=== PATIENT | female | born 1945 | race Caucasian/White ===

== ENCOUNTER → 2017-08-31 | Outpatient (CLI) | payer OTHER ==
[~2017-08-31] MED LIST: ALPR.5 PO; ASCO500 PO; Alprazolam0.5 MG PO; BENAML10/5 PO; ENOX100I SQ; ENOX40I SC; ERGO50000; ESOM20; FERR325 PO; Ferrous Sulfat325 MG PO; GABA100 PO; GABA300T24 PO; GLIM2 PO; GLIM4 PO; GLUCOPHAGE; Gas-X125 M1 PO; HCTZ/LOSARTAN; HYDACE5 PO; HYDCHL25 PO; K-Dur20 MEQ; LOVASTATIN; META800 PO; METF500 PO; METO25 PO; METO25ER PO; Norco 10-325 T1 EACH PO; OMEP20ER PO; OMEP40CA12 PO; OXYC10ER PO; OXYC5 PO; Omeprazole20 M1 PO; Percocet 5-3251 EACH PO; SERT100 PO; SERT50 PO; SIMV40 PO; Simvastatin40 MG PO; VALS80 PO; VALSARTAN-HCTZ1 EAC2 PO; Valium5 MG PO; WARF5 PO; ZOLP10 PO; Zofran Odt8 MG SL
[2017-08-31 16:24] LABS: Creatinine, Urine Random 94.5 mg/dL (27.00-270.00); Protein, Urine Random 18.8 mg/dL (0.0-11.9)
== END | disposition home or self-care (01) ==
LOC: OLS 13:03
PROVIDERS: Internal Medicine
DX: N18.9 Chronic kidney disease, unspecified (principal)
CPT/HCPCS: 82570; 84156

== ENCOUNTER 2018-05-10 16:58 | Emergency (ER) | payer OTHER ==
[~2018-05-10] VITALS: Ht 160 cm; Wt 88.5 kg
[2018-05-10 17:37] LABS: BASOPHILS ABSOLUTE AUTO 0.06 K/mm3 (0.00-0.23); BASOPHILS PERCENT AUTO 1 % (0-2); EOSINOPHILS ABSOLUTE AUTO 0.14 K/mm3 (0.00-0.68); EOSINOPHILS PERCENT AUTO 2 % (0-6); Hematocrit 41.6 % (33.0-51.0); Hemoglobin 13.3 g/dL (11.5-16.0); IMMATURE GRAN ABSOLUTE AUTO 0.02 K/mm3 (0.00-0.10); IMMATURE GRAN PERCENT AUTO 0 % (0-1); LYMPHOCYTES ABSOLUTE AUTO 3.17 K/mm3 (0.84-5.20); LYMPHOCYTES PERCENT AUTO 38 % (21-46); MONOCYTES ABSOLUTE AUTO 0.54 K/mm3 (0.16-1.47); MONOCYTES PERCENT AUTO 6 % (4-13); Mean Corpuscular HGB 30.4 pg (26.0-34.0); Mean Corpuscular Volume 95 fL (80-100); Mean Platelet Volume 9.7 fL (9.1-12.4); NEUTROPHILS ABSOLUTE AUTO 4.48 K/mm3 (1.96-9.15); NEUTROPHILS PERCENT AUTO 53 % (41-73); Platelet Count 159 K/mm3 (150-400); RDW Coefficient Variation 12.2 % (11.7-14.2); RDW Standard Deviation 42.8 fL (35.1-46.3); Red Blood Cell Count 4.38 M/mm3 (3.80-5.20); White Blood Cell Count 8.41 K/mm3 (4.00-11.30)
[2018-05-10 17:50] LABS: Bilirubin, Total 0.4 mg/dL (0.1-1.0); Bun/Creatinine Ratio 15.3 (12.0-20.0); Calcium, Blood 8.8 mg/dL (8.5-10.1); Creatinine, Blood 1.18 mg/dL (0.40-1.00); Globulin, Blood 3.9 g/dL (2.2-4.0); Potassium, Blood 4.2 mmol/L (3.5-5.5); Total Protein, Blood 7.9 g/dL (6.4-8.2)
== END 2018-05-10 18:55 | disposition home or self-care (01) ==
LOC: ER 16:58
PROVIDERS: Emergency Medicine
DX: I95.9 Hypotension, unspecified (principal); E11.9 Type 2 diabetes mellitus without complications; Z79.899 Other long term (current) drug therapy; Z86.718 Personal history of other venous thrombosis and embolism
CPT/HCPCS: 80053; 85025; 93005; 93010; 99284-25

== ENCOUNTER 2019-03-11 13:08 | Emergency (ER) | payer OTHER ==
[~2019-03-11] VITALS: Ht 160 cm; Wt 68.0 kg
[2019-03-11 13:46] LABS: BASOPHILS ABSOLUTE AUTO 0.03 K/mm3 (0.00-0.23); BASOPHILS PERCENT AUTO 0 % (0-2); EOSINOPHILS ABSOLUTE AUTO 0.03 K/mm3 (0.00-0.68); EOSINOPHILS PERCENT AUTO 0 % (0-6); Hematocrit 35.8 % (33.0-51.0); Hemoglobin 11.5 g/dL (11.5-16.0); IMMATURE GRAN ABSOLUTE AUTO 0.08 K/mm3 (0.00-0.10); IMMATURE GRAN PERCENT AUTO 1 % (0-1); LYMPHOCYTES ABSOLUTE AUTO 1.05 K/mm3 (0.84-5.20); LYMPHOCYTES PERCENT AUTO 6 % (21-46); MONOCYTES ABSOLUTE AUTO 1.08 K/mm3 (0.16-1.47); MONOCYTES PERCENT AUTO 7 % (4-13); Mean Corpuscular HGB 30.4 pg (26.0-34.0); Mean Corpuscular HGB Conc 32.1 g/dL (31.5-36.5); Mean Corpuscular Volume 95 fL (80-100); Mean Platelet Volume 9.1 fL (9.1-12.4); NEUTROPHILS ABSOLUTE AUTO 14.37 K/mm3 (1.96-9.15); NEUTROPHILS PERCENT AUTO 86 % (41-73); Platelet Count 218 K/mm3 (150-400); RDW Coefficient Variation 12.3 % (11.7-14.2); RDW Standard Deviation 43.5 fL (35.1-46.3); Red Blood Cell Count 3.78 M/mm3 (3.80-5.20); White Blood Cell Count 16.64 K/mm3 (4.00-11.30)
[2019-03-11 14:08] LABS: Alanine Aminotransfer (ALT/SGP 11 U/L (12-78); Albumin, Blood 3.2 g/dL (3.4-5.0); Albumin/Globulin Ratio 0.7 (0.8-1.8); Alk Phos 63 U/L (50-136); Anion Gap 7 mmol/L (6-16); Aspartate Aminotrans (AST/SGOT 8 U/L (12-37); Bilirubin, Total 0.7 mg/dL (0.1-1.0); Blood Urea Nitrogen 19 mg/dL (8-24); Bun/Creatinine Ratio 17.6 (12.0-20.0); CO2, Blood 31 mmol/L (21-32); Calcium, Blood 8.5 mg/dL (8.5-10.1); Chloride, Blood 94 mmol/L (98-108); Creatinine, Blood 1.08 mg/dL (0.40-1.00); Globulin, Blood 4.5 g/dL (2.2-4.0); Glomerular Filtration Rate 53 (60-); Glucose, Blood 137 mg/dL (70-99); Potassium, Blood 3.5 mmol/L (3.5-5.5); Sodium, Blood 132 mmol/L (136-145); Total Protein, Blood 7.7 g/dL (6.4-8.2); Troponin I <0.015 ng/mL (0.000-0.040)
[2019-03-11] MEDS ORDERED: Augmentin 500-1 EACH PO (16:29)
== END 2019-03-11 17:27 | disposition home or self-care (01) ==
LOC: ER 13:08
PROVIDERS: Physician Assistant
DX: J18.9 Pneumonia, unspecified organism (principal); Z79.899 Other long term (current) drug therapy; Z79.891 Long term (current) use of opiate analgesic; E11.9 Type 2 diabetes mellitus without complications; Z87.891 Personal history of nicotine dependence
CPT/HCPCS: 36415; 71046; 80053; 84484; 85025; 93005; 93010; 99285-25; J1885

== ENCOUNTER 2019-03-30 16:05 | Inpatient (IN) | payer OTHER ==
[~2019-03-30] VITALS: Ht 160 cm; Wt 94.0 kg
[~2019-03-30 16:05] MED LIST changes: +Augmentin 500-1 EACH PO
[2019-03-30 16:54] LABS: BASOPHILS ABSOLUTE AUTO 0.04 K/mm3 (0.00-0.23); BASOPHILS PERCENT AUTO 0 % (0-2); EOSINOPHILS ABSOLUTE AUTO 0.08 K/mm3 (0.00-0.68); EOSINOPHILS PERCENT AUTO 1 % (0-6); Hematocrit 34.2 % (33.0-51.0); Hemoglobin 10.9 g/dL (11.5-16.0); IMMATURE GRAN ABSOLUTE AUTO 0.06 K/mm3 (0.00-0.10); IMMATURE GRAN PERCENT AUTO 0 % (0-1); LYMPHOCYTES ABSOLUTE AUTO 1.01 K/mm3 (0.84-5.20); LYMPHOCYTES PERCENT AUTO 6 % (21-46); MONOCYTES ABSOLUTE AUTO 0.89 K/mm3 (0.16-1.47); MONOCYTES PERCENT AUTO 6 % (4-13); Mean Corpuscular HGB 30.2 pg (26.0-34.0); Mean Corpuscular HGB Conc 31.9 g/dL (31.5-36.5); Mean Corpuscular Volume 95 fL (80-100); Mean Platelet Volume 9.2 fL (9.1-12.4); NEUTROPHILS ABSOLUTE AUTO 13.93 K/mm3 (1.96-9.15); NEUTROPHILS PERCENT AUTO 87 % (41-73); Platelet Count 258 K/mm3 (150-400); RDW Coefficient Variation 12.5 % (11.7-14.2); RDW Standard Deviation 43.7 fL (35.1-46.3); Red Blood Cell Count 3.61 M/mm3 (3.80-5.20); White Blood Cell Count 16.01 K/mm3 (4.00-11.30)
[2019-03-30 17:09] LABS: Alanine Aminotransfer (ALT/SGP 13 U/L (12-78); Albumin/Globulin Ratio 0.7 (0.8-1.8); Alk Phos 71 U/L (50-136); Anion Gap 8 mmol/L (6-16); Aspartate Aminotrans (AST/SGOT 18 U/L (12-37); Bilirubin, Total 0.8 mg/dL (0.1-1.0); Blood Urea Nitrogen 10 mg/dL (8-24); Bun/Creatinine Ratio 11.8 (12.0-20.0); CO2, Blood 28 mmol/L (21-32); Calcium, Blood 8.2 mg/dL (8.5-10.1); Chloride, Blood 98 mmol/L (98-108); Creatinine, Blood 0.85 mg/dL (0.40-1.00); Globulin, Blood 4.6 g/dL (2.2-4.0); Glomerular Filtration Rate >60 (60-); Glucose, Blood 87 mg/dL (70-99); Potassium, Blood 3.3 mmol/L (3.5-5.5); Sodium, Blood 134 mmol/L (136-145); Total Protein, Blood 7.6 g/dL (6.4-8.2)
[2019-03-30] MEDS ORDERED: Percocet 5-3251 EACH PO (20:45)
[2019-03-30] MEDS ORDERED: BUPR150ER PO (20:46)
[2019-03-30] MEDS ORDERED: TOCO1000 PO (20:47)
[2019-03-30] MEDS ORDERED: HYDCHL25 PO (20:50)
[2019-03-30] MEDS ORDERED: POTCHL20ER PO (20:51)
[2019-03-30 21:37] LABS: International Normalized Ratio 1.03; Prothrombin Time Results 10.9 Sec (9.7-11.5)
[2019-03-31 01:50] LABS: U Amphetamine Screen Not Detected; U Barbituate Screen Not Detected; U Benzodiazapine Screen Not Detected; U Buprenorphine Screen Not Detected; U Cannabinoids Screen Not Detected; U Cocaine Screen Not Detected; U Methadone Screen Not Detected; U Methamphetamine Screen Not Detected; U Opiates Screen DETECTED; U Oxycodone Screen DETECTED; U Phencyclidine Screen Not Detected; U Propoxyphene Screen Not Detected
[2019-03-31 04:49] LABS: BASOPHILS ABSOLUTE AUTO 0.05 K/mm3 (0.00-0.23); BASOPHILS PERCENT AUTO 0 % (0-2); EOSINOPHILS ABSOLUTE AUTO 0.09 K/mm3 (0.00-0.68); EOSINOPHILS PERCENT AUTO 1 % (0-6); Hematocrit 28.8 % (33.0-51.0); Hemoglobin 9.1 g/dL (11.5-16.0); IMMATURE GRAN ABSOLUTE AUTO 0.07 K/mm3 (0.00-0.10); IMMATURE GRAN PERCENT AUTO 1 % (0-1); LYMPHOCYTES ABSOLUTE AUTO 1.79 K/mm3 (0.84-5.20); LYMPHOCYTES PERCENT AUTO 15 % (21-46); MONOCYTES ABSOLUTE AUTO 0.91 K/mm3 (0.16-1.47); MONOCYTES PERCENT AUTO 8 % (4-13); Mean Corpuscular HGB 29.5 pg (26.0-34.0); Mean Corpuscular HGB Conc 31.6 g/dL (31.5-36.5); Mean Corpuscular Volume 94 fL (80-100); Mean Platelet Volume 8.9 fL (9.1-12.4); NEUTROPHILS ABSOLUTE AUTO 9.17 K/mm3 (1.96-9.15); NEUTROPHILS PERCENT AUTO 76 % (41-73); Platelet Count 132 K/mm3 (150-400); RDW Coefficient Variation 12.6 % (11.7-14.2); RDW Standard Deviation 43.3 fL (35.1-46.3); Red Blood Cell Count 3.08 M/mm3 (3.80-5.20); White Blood Cell Count 12.08 K/mm3 (4.00-11.30)
[2019-03-31 05:10] LABS: Anion Gap 11 mmol/L (6-16); Blood Urea Nitrogen 13 mg/dL (8-24); Bun/Creatinine Ratio 15.5 (12.0-20.0); CO2, Blood 26 mmol/L (21-32); Calcium, Blood 7.3 mg/dL (8.5-10.1); Chloride, Blood 99 mmol/L (98-108); Creatinine, Blood 0.84 mg/dL (0.40-1.00); Glomerular Filtration Rate >60 (60-); Glucose, Blood 72 mg/dL (70-99); Potassium, Blood 2.9 mmol/L (3.5-5.5); Sodium, Blood 136 mmol/L (136-145)
--- NOTE | 2019-03-31 05:50 | NUR ---
SHIFT SUMMARY PT ADMITTED WITH COUGH AND ABSCESS OF LUNG. HAD BEEN DIAGNOSED 3 WEEKS AGO WITH PNEUMONIA AND TREATED WITH ORAL ANTIBIOTICS. PT A&O, CONTINENT OF BOWEL AND BLADDER. URINE SPECIMEN OBTAINED AND SENT TO LAB. PT HAS NON-PRODUCTIVE COUGH AND HAS BEEN COUGHING MUCH OF THE NIGHT WITHOUT RELIEF WITH PRN COUGH MEDICINES. PT ALSO STATES SHE SELF CATHS 2-3 X DAILY. CATH TRAY IN ROOM FOR PT TO SELF CATH WHEN NEEDING TO DUE TO CYSTOCELE. IVF'S INFUSING PER PUMP WITHOUT DIFFICULTY. PT DENIES HAVING ANY PAIN. WILL CONTINUE TO MONITOR.
--- NOTE | 2019-03-31 07:39 | NUR ---
DURING MORNING MED PASS THIS NURSE ENTERED PT ROOM TO FIND HER KNEELING ON HER LEFT KNEE ON THE FLOOR NEXT TO HER BED. PT STATES THAT SHE GOT DIZZY ON HER WAY BACK FROM THE BATHROOM AND LOST HER BALANCE. NO INJURIES OBSERVED. PT DENIES ANY PAIN R/T FALL. PT WAS ASSISTED BACK TO BED X 2 ASSIST. V/S WNL. CHARGE NURSE NOTIFIED. BED ALARM SET AND YELLOW GOWN PLACED AND EDUCATION PROVIDED REGARDING THE USE OF THE CALL LIGHT AND IN THE FUTURE TO CALL FOR HELP BEFORE GOING TO THE TOILET. PT IS RESTING BACK IN BED.
--- NOTE | 2019-03-31 07:46 | NUR ---
DR SOTELO NOTIFIED OF FALL AND NO NEW ORDERS GIVEN OF NOW. NURSING TO CONTINUE TO MONITOR.
--- NOTE | 2019-03-31 17:54 | NUR ---
SHIFT SUMMARY: PT HAS BEEN A/O X4 THIS SHIFT WITH ONGOING C/O CHRONIC PAIN FOR WHICH SHE TAKES SCHEDULED MEDS FOR AND REPORTS THEM BEING EFFECTIVE. NO LATE INJURIES OR PAIN NOTED S/P FALL THIS AM AND PT WAS AGREEABLE TO CALLING FOR HELP BEFORE TRANSFERRING TO BSC. FAMILY HAS BEEN AT BEDSIDE MOST OF THE DAY. DR SOTELO ORDERED A CONSULT THAT WAS CALLED INTO DR LOWERY WHO CAME TO SEE PT THIS AFTERNOON. PERSISTENT COUGH CONTINUES BUT ORDERED COUGH DROPS APPEAR TO BE MILDLY EFFECTIVE. PT IS RESTING IN BED WITH CALL LIGHT IN REACH.
--- NOTE | 2019-04-01 07:31 | NUR ---
Shift summary: Pt has frequent dry cough during the night. No sputum sample was obtained. Pt hard of hearing. IV came out right arm during night. Iv restarted in left arm. Pt recieving antibiotics without problems. Guiaffesson given for cough with some relief. Pt refused in and out cath during the night. Stated she did not need to pee. Pt to radiology for chest xray at 0600- tolerated well.
[2019-04-01 08:39] LABS: BASOPHILS ABSOLUTE AUTO 0.04 K/mm3 (0.00-0.23); BASOPHILS PERCENT AUTO 1 % (0-2); EOSINOPHILS ABSOLUTE AUTO 0.14 K/mm3 (0.00-0.68); EOSINOPHILS PERCENT AUTO 2 % (0-6); Hemoglobin 9.4 g/dL (11.5-16.0); IMMATURE GRAN ABSOLUTE AUTO 0.06 K/mm3 (0.00-0.10); IMMATURE GRAN PERCENT AUTO 1 % (0-1); LYMPHOCYTES ABSOLUTE AUTO 1.06 K/mm3 (0.84-5.20); LYMPHOCYTES PERCENT AUTO 15 % (21-46); MONOCYTES ABSOLUTE AUTO 0.59 K/mm3 (0.16-1.47); MONOCYTES PERCENT AUTO 8 % (4-13); Mean Corpuscular HGB 30.2 pg (26.0-34.0); Mean Corpuscular HGB Conc 31.3 g/dL (31.5-36.5); Mean Platelet Volume 9.2 fL (9.1-12.4); NEUTROPHILS ABSOLUTE AUTO 5.32 K/mm3 (1.96-9.15); NEUTROPHILS PERCENT AUTO 74 % (41-73); Platelet Count 166 K/mm3 (150-400); RDW Coefficient Variation 12.7 % (11.7-14.2); RDW Standard Deviation 45.1 fL (35.1-46.3); Red Blood Cell Count 3.11 M/mm3 (3.80-5.20); White Blood Cell Count 7.21 K/mm3 (4.00-11.30)
[2019-04-01 08:48] LABS: Mean Corpuscular Volume 97 fL (80-100)
[2019-04-01 09:03] LABS: Anion Gap 8 mmol/L (6-16); Blood Urea Nitrogen 10 mg/dL (8-24); Bun/Creatinine Ratio 12.9 (12.0-20.0); CO2, Blood 26 mmol/L (21-32); Calcium, Blood 7.2 mg/dL (8.5-10.1); Chloride, Blood 106 mmol/L (98-108); Creatinine, Blood 0.78 mg/dL (0.40-1.00); Glomerular Filtration Rate >60 (60-); Glucose, Blood 81 mg/dL (70-99); Potassium, Blood 3.1 mmol/L (3.5-5.5); Sodium, Blood 140 mmol/L (136-145)
[2019-04-01 09:10] LABS: Vancomycin, Trough 26.1 ug/mL (5.0-10.0)
[2019-04-01 16:54] LABS: Vancomycin, Random 19.2 ug/mL
--- NOTE | 2019-04-01 17:14 | NUR ---
Pal spiritual Care intial visit: Mrs. Qureshi is primarily irritated at beding hospitalized. she is non-pentecostalism and declined freight weigher visit. Family at bedside appears supportive. I will remain available.
--- NOTE | 2019-04-01 19:48 | NUR ---
SHIFT SUMMARY: NO ACUTE CHANGES TO REPORT THIS SHIFT. PT A&O; IRRITABLE; COOPERATIVE WITH CARE. MEDICATED FOR PAIN & COUGH PER EMAR. TELE IN PLACE; SR @ 78. IV ABX CONTINUING. REPORT GIVEN TO ONCOMING RN.
[2019-04-02 05:50] LABS: Bun/Creatinine Ratio 8.7 (12.0-20.0); Creatinine, Blood 1.03 mg/dL (0.40-1.00); Potassium, Blood 3.5 mmol/L (3.5-5.5)
--- NOTE | 2019-04-02 05:52 | NUR ---
SHIFT SUMMARY PT C/O PAIN AND COUGH. CONSTANT DRY NONPRODUCTIVE COUGH MEDICATED PER EMAR FOR PAIN AND COUGH T/O NIGHT. SELF CATHS X2. SBA Adam WALKER TO BA. BED ALARM IN USE. SHE WAS ABLE TO SLEEP A LITTLE T/O NIGHT UNTIL LAB DRAW CAME IN. CALL LIGHT IN REACH.
--- NOTE | 2019-04-02 16:45 | NUR ---
SHIFT SUMMARY: PT IS A/O X 3-4 WITH MOMENTS OF FORGETFULLNESS AT BASELINE. PT REPORTS CHRONIC PAIN FOR WHICH SCHEDULED PAIN MEDS WERE GIVEN AND EFFECTIVE. PT DID REPORT SOME MILD NAUSEA THIS MORNING AFTER BREAKFAST AND FELT IT WAS FROM HER FOOD AND REQUESTED A SODA TO HELP SETTLE HER STOMACH. FAMILY HAS BEEN IN ROOM MOST OF SHIFT. IV ABO INFUSED VIA PERIPHERAL LINE WITH NO ISSUES OBSERVED. PT IS NOW AMBULTING WITH A FWW AND X 1 ASSIST TO THE TOILET. PT IS ABLE TO MAKE HER NEEDS KNOWN AND USES CALL LIGHT FOR HELP.
--- NOTE | 2019-04-03 06:43 | NUR ---
SHIFT SUMMARY PT IS A 73 Y/O FEMALE, ADMITTED FOR A LUNG ABSCESS. SHE IS A&O X 4, AND A SBA IN THE ROOM. PT WAS MEDICATED ONCE AT BEDTIME FOR GENERAL PAIN, AND WAS MEDICATED X2 FOR HER DRY, CHRONIC COUGH DURING THE NIGHT. VITAL SIGNS WERE STABLE. NO COMPLAINTS OF NAUSEA OR SOB. NO OTHER ACUTE CHANGES IN PT CONDITION NOTED DURING THE NIGHT. WILL CONTINUE TO MONITOR AND TREAT PER EMAR UNTIL HAND OFF TO DAY SHIFT RN.
[2019-04-03 07:18] LABS: Vancomycin, Trough 33.3 ug/mL (5.0-10.0)
[2019-04-03] MEDS ORDERED: Q-Tussin100 MG/5 M PO (15:06)
[2019-04-03] MEDS ORDERED: ACET325 PO (15:14)
[2019-04-03] MEDS ORDERED: CEPACOL SORE T1 EACH MM (15:16)
[2019-04-03] MEDS ORDERED: BENZ100A PO (15:16)
[2019-04-03] MEDS ORDERED: HIGH POTENCY P1 EACH PO (15:18)
[2019-04-03] MEDS ORDERED: Vancocin HCL1000 M1 (15:20)
[2019-04-03] MEDS ORDERED: MAXIPIME2 GM IV (15:21)
--- NOTE | 2019-04-03 15:56 | NUR ---
PT DISCHARGE REPORT CALLED TO RN AT [facility] [place] TO BE TRANSFERED AT 0916
--- NOTE | 2019-04-03 18:19 | NUR ---
PT DISCHARGED PT TRANSFERED TO [facility], THE PT WAS A/OX3, PLEASANT AND COOPERATIVE, THE ESCORT SERVICE WAS LATE PICKING UP THE PT, THE PT WAS BREATHING EASILY ON RA AT THE TIME OF DISCHARGE, DC ORDER PACKET WAS GIVEN TO THE ESCORT REVOLVING FIELD ASSEMBLER, PT WAS TRANSFERED VIA WHEELCHAIR
--- NOTE | 2019-04-04 13:22 | NUR ---
CHANGE TO IV ANTIBIOTIC ORDER: PER DR. DARLING, PT NEEDS TO STOP IV CEFEPIME AND START IV UNASYN 1.5 GM Q6H FOR 17 DAYS. CALLED AND SPOKE WITH OLIVIER ANGEL AT [facility] TO NOTIFY HER OF THESE CHANGES. FAXED ORDERS TO [phone] AT 1320.
== END 2019-04-03 17:36 | DRG 871 ==
LOC: ER 16:05 → MEDS 21:28 → ER 22:40 → MEDS 22:54 → ENPENDDIS 04-03 11:00 → MEDS 04-03 17:36
PROVIDERS: Hospitalist; Internal Medicine; Nurse Practitioner Acute Care; Pharmacist; Physician Assistant; ADMIT Hospitalist
PROC: 02HV33Z Insertion of Infusion Device into Superior Vena Cava, Percutaneous Approach (ICD-10-PCS; principal; 2019-04-03)
PROC: B548ZZA Ultrasonography of Superior Vena Cava, Guidance (ICD-10-PCS; 2019-04-03)
DX: A41.9 Sepsis, unspecified organism (principal); J18.9 Pneumonia, unspecified organism; J85.1 Abscess of lung with pneumonia; I10 Essential (primary) hypertension; E87.6 Hypokalemia; F41.1 Generalized anxiety disorder; K44.9 Diaphragmatic hernia without obstruction or gangrene; K21.9 Gastro-esophageal reflux disease without esophagitis; Z86.718 Personal history of other venous thrombosis and embolism; Z87.891 Personal history of nicotine dependence; Z79.899 Other long term (current) drug therapy
CPT/HCPCS: 36415; 36569; 71046; 71260; 80048; 80053; 80202; 82947; 83036; 83605; 83735; 84145; 84484; 85025; 85610; 87040; 87493; 93005; 93010; 94640; 96365-59; 96375-59; 99285-25; C1751; J1650; J1885; J2543; J3370; J3480; J7030; J7050; Q9967

== ENCOUNTER 2019-04-06 15:41 | Emergency (ER) | payer OTHER ==
[~2019-04-06] VITALS: Ht 160 cm; Wt 93.0 kg
[~2019-04-06 15:41] MED LIST changes: +ACET325 PO; +BENZ100A PO; +BUPR150ER PO; +CEPACOL SORE T1 EACH MM; +HIGH POTENCY P1 EACH PO; +MAXIPIME2 GM IV; +POTCHL20ER PO; +Q-Tussin100 MG/5 M PO; +TOCO1000 PO; +Vancocin HCL1000 M1
[2019-04-06 17:06] LABS: Source, Urine Clean Catch
[2019-04-06 17:09] LABS: Bilirubin, Urine Neg (Neg); Blood, Urine 4+ (Neg); Glucose Qualitative, Urine Neg (Neg); Ketones, Urine 2+ (Neg); Leukocyte Esterase, Urine Neg (Neg); Nitrite, Urine Neg (Neg); Protein, Urine Neg (Neg); Urobilinogen, Urine NORM (Normal)
[2019-04-06 17:42] LABS: Appearance, Urine Clear (Clear); Color, Urine Yellow (P-Yellow)
[2019-04-06 18:01] LABS: Bacteria Rare /hpf; Squamous Epithelial Cells Few /hpf (Few); White Blood Cells, Urine 0-2 /hpf (0-5)
== END 2019-04-06 19:02 | disposition home or self-care (01) ==
LOC: ER 15:41
PROVIDERS: Physician Assistant
DX: K52.1 Toxic gastroenteritis and colitis (principal); T36.8X5A Adverse effect of other systemic antibiotics, initial encounter; Z79.899 Other long term (current) drug therapy; Z79.891 Long term (current) use of opiate analgesic; E11.9 Type 2 diabetes mellitus without complications; Z87.891 Personal history of nicotine dependence
CPT/HCPCS: 81001; 87493; 99283; J2997

== ENCOUNTER 2019-04-11 14:17 | Emergency (ER) | payer OTHER ==
[~2019-04-11] VITALS: Ht 160 cm; Wt 92.5 kg
[2019-04-11] MEDS ORDERED: Vitamin D2000 UNIT PO (15:14)
[2019-04-11] MEDS ORDERED: IRBE150 PO (15:16)
[2019-04-11] MEDS ORDERED: PIOG15 PO (15:18)
[2019-04-11] MEDS ORDERED: META800 PO (15:18)
[2019-04-11 16:06] LABS: Albumin, Blood 2.5 g/dL (3.4-5.0); Albumin/Globulin Ratio 0.6 (0.8-1.8); Bilirubin, Total 0.4 mg/dL (0.1-1.0); Bun/Creatinine Ratio 12.1 (12.0-20.0); Calcium, Blood 8.3 mg/dL (8.5-10.1); Creatinine, Blood 1.4 mg/dL (0.40-1.00); Globulin, Blood 4.5 g/dL (2.2-4.0); Potassium, Blood 3.2 mmol/L (3.5-5.5)
[2019-04-11 16:20] LABS: BASOPHILS ABSOLUTE AUTO 0.09 K/mm3 (0.00-0.23); BASOPHILS PERCENT AUTO 1 % (0-2); EOSINOPHILS ABSOLUTE AUTO 0.25 K/mm3 (0.00-0.68); EOSINOPHILS PERCENT AUTO 2 % (0-6); Hematocrit 32.3 % (33.0-51.0); Hemoglobin 10.3 g/dL (11.5-16.0); IMMATURE GRAN ABSOLUTE AUTO 0.13 K/mm3 (0.00-0.10); IMMATURE GRAN PERCENT AUTO 1 % (0-1); LYMPHOCYTES ABSOLUTE AUTO 1.51 K/mm3 (0.84-5.20); LYMPHOCYTES PERCENT AUTO 10 % (21-46); MONOCYTES ABSOLUTE AUTO 1.09 K/mm3 (0.16-1.47); MONOCYTES PERCENT AUTO 8 % (4-13); Mean Corpuscular HGB 29.2 pg (26.0-34.0); Mean Corpuscular HGB Conc 31.9 g/dL (31.5-36.5); Mean Corpuscular Volume 92 fL (80-100); Mean Platelet Volume 9.8 fL (9.1-12.4); NEUTROPHILS PERCENT AUTO 79 % (41-73); Platelet Count 211 K/mm3 (150-400); RDW Coefficient Variation 14.6 % (11.7-14.2); Red Blood Cell Count 3.53 M/mm3 (3.80-5.20); White Blood Cell Count 14.47 K/mm3 (4.00-11.30)
== END 2019-04-11 17:04 | disposition home or self-care (01) ==
LOC: ER 14:17
PROVIDERS: Emergency Medicine
DX: E87.6 Hypokalemia (principal); F32.9 Major depressive disorder, single episode, unspecified; E11.22 Type 2 diabetes mellitus with diabetic chronic kidney disease; I12.9 Hypertensive chronic kidney disease with stage 1 through stage 4 chronic kidney disease, or unspecified chronic kidney disease; N18.9 Chronic kidney disease, unspecified; Z87.891 Personal history of nicotine dependence; Z79.899 Other long term (current) drug therapy
CPT/HCPCS: 36415; 71046; 80053; 83735; 85025; 93005; 93010; 99284-25; J3480

== ENCOUNTER 2019-04-14 09:47 | Emergency (ER) | payer OTHER ==
[~2019-04-14] VITALS: Ht 160 cm; Wt 90.7 kg
[~2019-04-14 09:47] MED LIST changes: +IRBE150 PO; +PIOG15 PO; +Vitamin D2000 UNIT PO
[2019-04-14 10:50] LABS: Albumin, Blood 2.5 g/dL (3.4-5.0); Albumin/Globulin Ratio 0.6 (0.8-1.8); Bilirubin, Total 0.5 mg/dL (0.1-1.0); Bun/Creatinine Ratio 11.8 (12.0-20.0); Creatinine, Blood 1.36 mg/dL (0.40-1.00); Globulin, Blood 4.2 g/dL (2.2-4.0); Potassium, Blood 3.5 mmol/L (3.5-5.5); Total Protein, Blood 6.7 g/dL (6.4-8.2)
== END 2019-04-14 11:24 | disposition home or self-care (01) ==
LOC: ER 09:47
PROVIDERS: Emergency Medicine
DX: E87.6 Hypokalemia (principal); E11.22 Type 2 diabetes mellitus with diabetic chronic kidney disease; I12.9 Hypertensive chronic kidney disease with stage 1 through stage 4 chronic kidney disease, or unspecified chronic kidney disease; N18.9 Chronic kidney disease, unspecified; F41.1 Generalized anxiety disorder; F32.9 Major depressive disorder, single episode, unspecified; Z86.718 Personal history of other venous thrombosis and embolism; Z87.891 Personal history of nicotine dependence; Z88.8 Allergy status to other drugs, medicaments and biological substances; Z88.5 Allergy status to narcotic agent; Z79.899 Other long term (current) drug therapy; Z79.891 Long term (current) use of opiate analgesic
CPT/HCPCS: 36415; 80053; 99283

== ENCOUNTER 2019-04-20 22:07 | Inpatient (IN) | payer OTHER ==
[~2019-04-20] VITALS: Ht 160 cm; Wt 91.6 kg
[2019-04-20 23:49] LABS: Source, Urine Catheter
[2019-04-20 23:52] LABS: Appearance, Urine Clear (Clear); Bilirubin, Urine Neg (Neg); Blood, Urine 4+ (Neg); Color, Urine Yellow (P-Yellow); Glucose Qualitative, Urine Neg (Neg); Ketones, Urine 1+ (Neg); Leukocyte Esterase, Urine Neg (Neg); Nitrite, Urine Neg (Neg); Protein, Urine 2+ (Neg); Urobilinogen, Urine NORM (Normal)
[2019-04-20 23:55] LABS: BASOPHILS ABSOLUTE AUTO 0.13 K/mm3 (0.00-0.23); BASOPHILS PERCENT AUTO 1 % (0-2); EOSINOPHILS ABSOLUTE AUTO 0.14 K/mm3 (0.00-0.68); EOSINOPHILS PERCENT AUTO 1 % (0-6); Hematocrit 37.2 % (33.0-51.0); Hemoglobin 11.8 g/dL (11.5-16.0); IMMATURE GRAN ABSOLUTE AUTO 0.08 K/mm3 (0.00-0.10); IMMATURE GRAN PERCENT AUTO 1 % (0-1); LYMPHOCYTES ABSOLUTE AUTO 1.03 K/mm3 (0.84-5.20); LYMPHOCYTES PERCENT AUTO 7 % (21-46); MONOCYTES ABSOLUTE AUTO 0.98 K/mm3 (0.16-1.47); MONOCYTES PERCENT AUTO 6 % (4-13); Mean Corpuscular HGB 30.1 pg (26.0-34.0); Mean Corpuscular HGB Conc 31.7 g/dL (31.5-36.5); Mean Corpuscular Volume 95 fL (80-100); Mean Platelet Volume 11.2 fL (9.1-12.4); NEUTROPHILS ABSOLUTE AUTO 13.12 K/mm3 (1.96-9.15); NEUTROPHILS PERCENT AUTO 85 % (41-73); Platelet Count 153 K/mm3 (150-400); RDW Coefficient Variation 15.3 % (11.7-14.2); RDW Standard Deviation 53.2 fL (35.1-46.3); Red Blood Cell Count 3.92 M/mm3 (3.80-5.20); White Blood Cell Count 15.48 K/mm3 (4.00-11.30)
[2019-04-20 23:59] LABS: Amorphous Light (0-Heavy); Bacteria Few /hpf; Red Blood Cells, Urine 0-2 /hpf (0-2); Squamous Epithelial Cells Few /hpf (Few); White Blood Cells, Urine 0-2 /hpf (0-5)
[2019-04-21 00:08] LABS: Albumin, Blood 2.5 g/dL (3.4-5.0); Albumin/Globulin Ratio 0.5 (0.8-1.8); Bilirubin, Total 0.5 mg/dL (0.1-1.0); Bun/Creatinine Ratio 14.5 (12.0-20.0); Creatinine, Blood 2.55 mg/dL (0.40-1.00); Globulin, Blood 4.7 g/dL (2.2-4.0); Magnesium, Blood 2.1 mg/dL (1.6-2.4); Potassium, Blood 3.4 mmol/L (3.5-5.5); Total Protein, Blood 7.2 g/dL (6.4-8.2)
[2019-04-21] MEDS ORDERED: Tessalon Perle100 MG PO (00:38)
[2019-04-21 04:53] LABS: Hematocrit 35.6 % (33.0-51.0); Hemoglobin 11.2 g/dL (11.5-16.0); Mean Corpuscular HGB 29.4 pg (26.0-34.0); Mean Corpuscular HGB Conc 31.5 g/dL (31.5-36.5); Mean Corpuscular Volume 93 fL (80-100); Mean Platelet Volume 10.6 fL (9.1-12.4); Platelet Count 141 K/mm3 (150-400); RDW Coefficient Variation 15.4 % (11.7-14.2); Red Blood Cell Count 3.81 M/mm3 (3.80-5.20); White Blood Cell Count 14.06 K/mm3 (4.00-11.30)
[2019-04-21 05:08] LABS: Albumin, Blood 2.4 g/dL (3.4-5.0); Albumin/Globulin Ratio 0.6 (0.8-1.8); Bilirubin, Total 0.5 mg/dL (0.1-1.0); Bun/Creatinine Ratio 15.2 (12.0-20.0); Calcium, Blood 8.4 mg/dL (8.5-10.1); Creatinine, Blood 2.5 mg/dL (0.40-1.00); Globulin, Blood 4.2 g/dL (2.2-4.0); Potassium, Blood 3.8 mmol/L (3.5-5.5); Total Protein, Blood 6.6 g/dL (6.4-8.2)
--- NOTE | 2019-04-21 06:45 | NUR ---
SHIFT SUMMARY PT ARRIVED TO ROOM APPROX 0330. SAID SHE WAS UNABLE TO VOID AND SHE TRIED AND COULDN'T, BLADDER SCAN SHOWED MORE THAN 1000. DR BROUSSARD ORDERED STRAIGHT CATH THEN BLADDER SCAN 6 HR LATER. STRAIGHT CATH DRAINED OUT 1175. PT PLEASANTLY CONFUSED DIDN'T KNOW YEAR BUT KNEW SHE WAS AT [facility]. SHE FELL ASLEEP AFTER STRAIGHT CATH. BED ALARM IN USE.
[2019-04-21 09:07] LABS: Creatinine, Urine Random 29.1 mg/dL (27.00-270.00)
--- NOTE | 2019-04-21 12:00 | NUR ---
PT. BLADDER SCAN SHOWED PT HAD A VOLUME OF 600 ML OF URINE AND UNABLE TO VOID. CALLED DR. DARLING TO GET ORDERS FOR CATHETER PLACEMENT. URIBE PLACED AND 700 MLOF URINE RELEASED.
[2019-04-21 23:36] LABS: Campylobacter Sp Not Detected (NOT DETECT)
[2019-04-21 23:37] LABS: Adenovirus F 40/41 Not Detected (NOT DETECT); Astrovirus Not Detected (NOT DETECT); Cryptosporidium Not Detected (NOT DETECT); Cyclospora Cayetanensis Not Detected (NOT DETECT); E. Coli O157 Not Detected (NOT DETECT); Entamoeba Histolytica Not Detected (NOT DETECT); Enteroaggregative E. coli-EAEC Not Detected (NOT DETECT); Enteropathogenic E. coli-EPEC Not Detected (NOT DETECT); Enterotoxigenic E. coli-ETEC Not Detected (NOT DETECT); Giardia Lamblia Not Detected (NOT DETECT); Norovirus GI/GII Not Detected (NOT DETECT); Plesiomonas Shigelloides Not Detected (NOT DETECT); Rotavirus A Not Detected (NOT DETECT); Salmonella Sp Not Detected (NOT DETECT); Sapovirus Not Detected (NOT DETECT); Shiga Toxin-prod E. coli-STEC Not Detected (NOT DETECT); Shigella/Enteroin E. coli-EIEC Not Detected (NOT DETECT); Vibrio Cholerae Not Detected (NOT DETECT); Vibrio Sp Not Detected (NOT DETECT); Yersinia Enterocolitica Not Detected (NOT DETECT)
[2019-04-22 08:43] LABS: Bun/Creatinine Ratio 16.8 (12.0-20.0); Calcium, Blood 7.9 mg/dL (8.5-10.1); Creatinine, Blood 2.32 mg/dL (0.40-1.00); Potassium, Blood 3.3 mmol/L (3.5-5.5)
--- NOTE | 2019-04-22 11:01 | NUR ---
PT TO IMAGING FOR MRI.
--- NOTE | 2019-04-22 14:29 | NUR ---
DR DARLING IN ROOM TO DISCUSS MRI AND RENAL U/S WITH FAMILY, DR ACUÑA ALSO CONSULTED FOR F/U FOR PULMONARY ABSCESS AND PNA.
--- NOTE | 2019-04-22 18:10 | NUR ---
SHIFT SUMMARY- PT A/O X2, PERSON AND PLACE. PT DENIES ANY COMPLAINTS T/O THE DAY. PT WITH NOTED GENERALIZED WEAKNESS T/O, PT HAS TREMORS AND DIFFICULTY FOLLOWING DIRECTION. MRI COMPLETED TODAY, MRI NEGATIVE. LS CLEAR/ DIMINISHED IN THE BASES, ON RA. TELE ST AT 101. PT NOTED TO BE HYPERTENSIVE AND TACHY AT 110 THIS EVENING, SCHEDULED EVENING METOPROLOL STARTED EARLY. URIBE FOR RETENTION, PT STRAIGHT CATH'S AT HOME. PT UP TO CHAIR WITH THERAPY WITH 1 ASSIST HOWEVER WHEN GETTING BACK INTO BED PT LEGS GAVE OUT AND NEEDED 4 PEOPLE TO ASSIT INTO BED, PT A LIFT AT THIS TIME. PT HAVING DIFFICULTY FEEDING SELF AND WRITING AT THIS TIME. SWALLOW EVAL COMPLETED TODAY. PT ABLE TO SAY SINGLE WORDS AT A TIME AND IS HAVING DIFFICULTY GETTING ACROSS WHAT SHE IS TRYING TO SAY. DR ACUÑA CONSULTED FOR F/U OF LUNG ABSCESS/ PNA BUT HAS NOT SEEN PT YET. NO OTHER ACUTE CHANGES THIS SHIFT.
--- NOTE | 2019-04-23 04:28 | NUR ---
ASSISTING PRIMARY RN, NAJMA CALLES, WITH PT'S CARE. THIS RN ENTERS CHART TO DO SO.
[2019-04-23 05:13] LABS: Bun/Creatinine Ratio 18.6 (12.0-20.0); Calcium, Blood 8.2 mg/dL (8.5-10.1); Creatinine, Blood 2.31 mg/dL (0.40-1.00); Potassium, Blood 3.4 mmol/L (3.5-5.5)
--- NOTE | 2019-04-23 06:30 | NUR ---
APPROXIMATELY 0245 AM PATIENT WAS HAVING ELEVATED BPS AND CALLED TELE TO CHECK AND SHE WAS ST IN THE 130S FOR APPROX 15 MIN AT THAT TIME. (THE AIDES WERE CHANGING HER LINENS AND TURNING HER BACK AND FORTH IN THE BED AND REPOSITIONING HER DURING THIS TIME FRAME.) BUT PT BACAME SOB, DIAPHORETIC, AIR HUNGRY, HER PRESSURES WERE 180S/100S AND HER SATURATION DROPPED TO THE 70S. STOPPED IVF AND COVERING OLIVIER LIM CALLED PRE K TEACHER HOSPITALIST AND RECEIVED ORDERS FOR LASIX AND TO HOLD IVF. THIS MORNING PATIENT BP IS IMPROVING AND SHE IS EVEN AND UNLABORED IN HER BREATHING. SATURATING AT 96% ON 6l VIA OXIMIZER CANNULA. PASSED REPORT TO JESENIA OLIVIER
--- NOTE | 2019-04-23 18:31 | NUR ---
SHIFT SUMMARY PT WORKED WITH PHSYSICAL AND OCCUPATIONAL THERAPY THIS SHIFT. PT HAD AN INCONTINENT STOOL. NO COMPLAINTS OF PAIN. PT MORE ORIENTED THIS SHIFT PER FAMILY. STILL HAS DIFFICULTY WITH USING RIGHT HAND/ARM. NO DISTRESS THIS SHIFT. DR. PURVIS IN TO SEE PT. LABS ORDERED FOR THE AM. WILL CONTINUE TO MONITOR AND REPORT TO ONCOMING RN.
[2019-04-24 05:07] LABS: Albumin, Blood 2.3 g/dL (3.4-5.0); Albumin/Globulin Ratio 0.6 (0.8-1.8); Bilirubin, Total 0.4 mg/dL (0.1-1.0); Bun/Creatinine Ratio 19.3 (12.0-20.0); Creatinine, Blood 2.28 mg/dL (0.40-1.00); Magnesium, Blood 1.8 mg/dL (1.6-2.4); Phosphorus, Blood 2.6 mg/dL (2.5-4.9); Potassium, Blood 2.6 mmol/L (3.5-5.5); Total Protein, Blood 6.3 g/dL (6.4-8.2)
--- NOTE | 2019-04-24 05:31 | NUR ---
SHIFT SUMMARY PT IS ALERT AND DISORIENTED TO TIME. PT HAD AN UNEVENTFUL NIGHT. NO COMPLAINTS OF DISCOMFORT WERE MADE. PT'S LUNGS WERE CLEAR UPON AUSCULTATION. PT'S POTASSIUM WAS 2.6 THIS MORNING. HOSPITALIST MADE AWARE AND 40MEQ OF POTASSIUM WAS ORDERED. NO SKIN ISSUES DEVELOPED DURING THE SHIFT. VSS. WILL CONTINUE TO MONITOR.
--- NOTE | 2019-04-24 13:55 | NUR ---
Initial Visit: Palliative Care Consult for Readmission. Pt is A&OX3. Pt unable to give appropriate reason for hospital stay. Pt denies pain, anxiety, nausea, and dyspnea at this time. Pt does report experiencing pain in her lower back with exertion such as sitting up or with ambulation. Pt's daughter Sadaf is present during visit. Engaged in therapeutic discussion regarding Advanced Care Planning. Pt currently lives with her and at baseline is independent of her ADLs. Discussed the importance of moth exterminator planning with the future possibility of needing assistance with care. Daughter Sadaf reports that discussions have been made and plan is for Pt and Pt's to sell their house and move in with Sadaf. Sadaf reports she can provide care for Pt and Pt's and higher caregivers if needed. Discussed AD/POLST. Sadaf reports Dr Wells is in the process of helping Pt complete a POLST. Requested Pt to bring in POLST once completed for a copy for medical records. Discussed the importance of having a health care life assurance representative and discussed completing an advanced directive. Pt and daughter are receptive and report they will complete one after discussion with rest of family. Educated on life sustaining measures and each section to complete with V/U made by Sadaf. Pt and Sadaf report no concerns at this time. Palliative Care will remain available.
[2019-04-24 14:44] LABS: Albumin, Blood 2.4 g/dL (3.4-5.0); Anion Gap 11 mmol/L (6-16); Blood Urea Nitrogen 42 mg/dL (8-24); Bun/Creatinine Ratio 19.1 (12.0-20.0); CO2, Blood 18 mmol/L (21-32); Calcium, Blood 7.9 mg/dL (8.5-10.1); Chloride, Blood 111 mmol/L (98-108); Glomerular Filtration Rate 23 (60-); Glucose, Blood 157 mg/dL (70-99); Phosphorus, Blood 2.1 mg/dL (2.5-4.9); Potassium, Blood 3.6 mmol/L (3.5-5.5); Sodium, Blood 140 mmol/L (136-145)
--- NOTE | 2019-04-24 18:40 | NUR ---
SHIFT SUMMARY PT AXO, PLEASANT AND COOPERATIVE WITH CARE. VSS. CHARGE NURSE USED CATHFLO IN PICC LINE PURPLE LINE WOULD NOT FLUSH OR DRAW, UNSUCCESSUFL THOUGH THE RED LINE DOES DRAW AND FLUSH AT THIS TIME NOW. 2 ASSIST TO RECLINER. INCONTINENT OF BOWEL. URIBE PATENT AND DRAINING. BED IN LOW POSITION, CALL LIGHT WITHIN REACH.
--- NOTE | 2019-04-25 04:33 | NUR ---
SHIFT SUMMARY PT ADMITTED FOR ACUTE RENAL FAILURE. FULL CODE. STROKE FINGER FOOD-ADA DIET-NO MIXED CONSISTENCY, ASPIRATION PRECAUTIONS, NO STRAW, THIN SMALL SIPS OF FLUID. UP IN CHAIR FOR MEALS. CATHETER, CATH CARE Q SHIFT AND PRN. BLADDER SCAN Q SHIFT-RESULTS OF 28 MLS. PICC LINE TO TAWNYA, DOES NOT DRAW. CBG AT AND . TELE-NSR AT A RATE OF 86 PER BROMINATION EQUIPMENT OPERATOR. MEDS CRUSHED IN APPLESAUCE. SUCTION SWABS FOR ORAL CARE. LOVENOX FOR DVT PROPHYLAXIS. PT IS A 2 PERSON ASSIST WITH TRANSFERS. EF OF 20-25 PERCENT NOTED ON RECENT ECHO PER REPORT, INDICATING THAT RENAL INJURY LIKELY SECONDARY TO CARDIAC ISSUE. 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 POSSIBLE DISCHARGE HOME WITH [facility] TODAY, WHICH PT REPORTS SHE HAS USED FOR QUITE SOME TIME. THE PT REPORTED THAT SHE TAKES OXYCONTIN FOR PAIN AT HOME AND ASKED THIS NURSE TO ADMINISTER. UPON CHART REVIEW IT DOES NOT APPEAR THAT PT WAS ON ANY PAIN MEDICATIONS SINCE ADMISSION, SO UNCLEAR IF PT HAVING INTERMITTENT CONFUSION/FORGETTFULNESS. WILL BRING UP WITH DAY NURSE TO BRING UP TO MD. PT HAS APPEARED TO SLEEP COMFORTABLY MOST OF THE NIGHT WITH NO APPARENT SIGNS OF ACUTE DISTRESS. FREQUENT VISUAL CHECKS IT IS NOT CLEAR IF PT ALWAYS USES THE CALL LIGHT APPROPRIATELY. BED ALARM FOR SAFETY.
[2019-04-25 06:10] LABS: Bun/Creatinine Ratio 20.7 (12.0-20.0); Creatinine, Blood 2.27 mg/dL (0.40-1.00); Potassium, Blood 3.5 mmol/L (3.5-5.5)
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
--- NOTE | 2019-04-25 10:30 | NUR ---
PAGED DR RODRIGUEZ FOR PT CARDIOLOGY CONSULT AWAITING A RETURN CALL.
--- NOTE | 2019-04-25 15:33 | NUR ---
Spiritual Care inital note" Mrs. Qureshi was sleeping and asked me not to awaken. He appers loving and devoted and denied needs or conerns. They are not pentecostal. Advised barbering instructor services would remain available.
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
--- NOTE | 2019-04-25 19:18 | NUR ---
SHIFT SUMMARY- PT WAS SEEN BY CARDIOLOGY TODAY. PER DR RODRIGUEZ, NO INTERVENTION WILL BE DONE AT THIS TIME, MEDICAL MANAGEMENT WILL BE PERSUED UNTIL PT IS MORE STABLE, MEDICATIONS WERE CHANGED TO IMPROVE CARDIAC FUNCTION AND REDUCE EDEMA AND PT WILL FOLLOW UP OUT PT WITH CARDIOLOGY. PASSED ON IN REPORT TO NIGHT RN. PT GOT UP INTO THE CHAIR TODAY WITH THERAPY, PT STAYED UP UNTIL SHIFT CHANGE AND WAS ASSISTED BY NURSING STAFF BACK TO BED SHE WAS A ONE PERSON ASSIST TO STAND AND STANDBY ASSIST FOR THE TRANSFER WITH VRBAL CUES. PT REQUESTED PAIN MEDICATION ONCE IN BED, PASSED ON TYO NIGHT RN SHE IS AWARE, PT IS AWARE THAT STAFF WILL BE IN TO SEE HER, FAMILY IS AT THE BEDSIDE.
--- NOTE | 2019-04-26 03:30 | NUR ---
SHIFT SUMMARY NO APPARENT ACUTE CHANGES NOTED SO FAR THIS SHIFT. PT COMPLAINT OF PAIN X1 SO FAR THIS SHIFT, MEDICATED PER EMAR. PT ABLE TO TRANSFER WITH ONE ASSIST, APPEARS TO BE GETTING STRONGER. PTS COGNITIVE STATUS APPEARS TO HAVE IMPROVED WELL. PT HAS APPEARED TO SLEEP COMFORTABLY MOST OF THE NIGHT WITH NO APPARENT SIGNS OF ACUTE DISTRESS. ABLE TO MAKE NEEDS KNOWN AND CALL LIGHT IN REACH.
[2019-04-26 04:54] LABS: BASOPHILS ABSOLUTE AUTO 0.05 K/mm3 (0.00-0.23); BASOPHILS PERCENT AUTO 0 % (0-2); EOSINOPHILS ABSOLUTE AUTO 0.33 K/mm3 (0.00-0.68); EOSINOPHILS PERCENT AUTO 3 % (0-6); Hematocrit 35.7 % (33.0-51.0); Hemoglobin 11.1 g/dL (11.5-16.0); IMMATURE GRAN ABSOLUTE AUTO 0.07 K/mm3 (0.00-0.10); IMMATURE GRAN PERCENT AUTO 1 % (0-1); LYMPHOCYTES ABSOLUTE AUTO 1.64 K/mm3 (0.84-5.20); LYMPHOCYTES PERCENT AUTO 14 % (21-46); MONOCYTES ABSOLUTE AUTO 0.93 K/mm3 (0.16-1.47); MONOCYTES PERCENT AUTO 8 % (4-13); Mean Corpuscular HGB 29.6 pg (26.0-34.0); Mean Corpuscular HGB Conc 31.1 g/dL (31.5-36.5); Mean Corpuscular Volume 95 fL (80-100); Mean Platelet Volume 11.5 fL (9.1-12.4); NEUTROPHILS ABSOLUTE AUTO 8.42 K/mm3 (1.96-9.15); NEUTROPHILS PERCENT AUTO 74 % (41-73); Platelet Count 135 K/mm3 (150-400); RDW Coefficient Variation 15.6 % (11.7-14.2); RDW Standard Deviation 53.8 fL (35.1-46.3); Red Blood Cell Count 3.75 M/mm3 (3.80-5.20); White Blood Cell Count 11.44 K/mm3 (4.00-11.30)
[2019-04-26 05:23] LABS: Albumin, Blood 2.3 g/dL (3.4-5.0); Anion Gap 11 mmol/L (6-16); Blood Urea Nitrogen 50 mg/dL (8-24); Bun/Creatinine Ratio 16.6 (12.0-20.0); CO2, Blood 21 mmol/L (21-32); Calcium, Blood 8.1 mg/dL (8.5-10.1); Chloride, Blood 113 mmol/L (98-108); Creatinine, Blood 3.02 mg/dL (0.40-1.00); Glomerular Filtration Rate 16 (60-); Glucose, Blood 155 mg/dL (70-99); Phosphorus, Blood 4.2 mg/dL (2.5-4.9); Potassium, Blood 3.9 mmol/L (3.5-5.5); Sodium, Blood 145 mmol/L (136-145)
--- NOTE | 2019-04-26 07:29 | NUR ---
ASSUMED CARE OF PT- BEDSIDE REPORT COMPLETE, PT HAS HAD NO ACUTE CHANGES T/O THE NIGHT. PAIN MEDICATION WAS AMINISTERED TWICE. RENAL FUNCTION DROPPED ON MORNING LABS. MICHAEL CAME TO SEE THE PT AFTER SHIFT CHANGE, RECOMENDED HOLDING IMDUR WITH MORNING MEDS AND GIVING AFTER REPEAT VITALS AFTER BREAKFAST.
--- NOTE | 2019-04-26 14:47 | NUR ---
met with family to review renal and cardiac function and notes. review of family wishes. they are very stressed about prognosis. suggested she speak with doctor sandra called his office he will call daughter post completed family wants DNR. notified physician radhames completed.
--- NOTE | 2019-04-26 18:43 | NUR ---
SHIFT SUMMARY- PT CODE STATUS WAS CHANGED TO DNR TODAY, PALLIATIVE CARE SPOKE TO THE PT AND FAMILY. FAMILY WAS ASKING IF THEY SHOULD BE THINKING HOSPICE AT THIS TIME, RECOMENDED THAT THEY FOLLOW UP WITH THE PT PCP FOR THAT FINAL DECISION. PT C/O PAIN IN HER FEET JUST PRIOR TO DINNER. MEDICATED WITH TRAMADOL. DR NAVA WOULD LIKE TO TRY THIS IN JOE OF OXY D/T RENAL FUNCTION. PT APPEARS TO BE COMFORTABLE AT THIS TIME. PT IS INCONTINENT OF STOOL AND IS NOT ABLE TO TELL IF SHE HAS GONE IN HER ATTENDS. WILL PASS ON TO THE NEXT SHIFT IN REPORT.
[2019-04-27 05:14] LABS: BASOPHILS ABSOLUTE AUTO 0.08 K/mm3 (0.00-0.23); BASOPHILS PERCENT AUTO 1 % (0-2); EOSINOPHILS ABSOLUTE AUTO 0.35 K/mm3 (0.00-0.68); EOSINOPHILS PERCENT AUTO 3 % (0-6); Hematocrit 34.7 % (33.0-51.0); Hemoglobin 10.9 g/dL (11.5-16.0); IMMATURE GRAN ABSOLUTE AUTO 0.07 K/mm3 (0.00-0.10); IMMATURE GRAN PERCENT AUTO 1 % (0-1); LYMPHOCYTES ABSOLUTE AUTO 2.14 K/mm3 (0.84-5.20); LYMPHOCYTES PERCENT AUTO 18 % (21-46); MONOCYTES ABSOLUTE AUTO 0.97 K/mm3 (0.16-1.47); MONOCYTES PERCENT AUTO 8 % (4-13); Mean Corpuscular HGB 29.2 pg (26.0-34.0); Mean Corpuscular HGB Conc 31.4 g/dL (31.5-36.5); Mean Corpuscular Volume 93 fL (80-100); Mean Platelet Volume 11.1 fL (9.1-12.4); NEUTROPHILS ABSOLUTE AUTO 8.38 K/mm3 (1.96-9.15); NEUTROPHILS PERCENT AUTO 70 % (41-73); Platelet Count 156 K/mm3 (150-400); RDW Coefficient Variation 15.9 % (11.7-14.2); RDW Standard Deviation 53.7 fL (35.1-46.3); Red Blood Cell Count 3.73 M/mm3 (3.80-5.20); White Blood Cell Count 11.99 K/mm3 (4.00-11.30)
[2019-04-27 05:45] LABS: Albumin, Blood 2.5 g/dL (3.4-5.0); Anion Gap 12 mmol/L (6-16); Blood Urea Nitrogen 50 mg/dL (8-24); Bun/Creatinine Ratio 16.2 (12.0-20.0); CO2, Blood 18 mmol/L (21-32); Calcium, Blood 8.1 mg/dL (8.5-10.1); Chloride, Blood 112 mmol/L (98-108); Creatinine, Blood 3.08 mg/dL (0.40-1.00); Glomerular Filtration Rate 16 (60-); Glucose, Blood 120 mg/dL (70-99); Phosphorus, Blood 4.4 mg/dL (2.5-4.9); Potassium, Blood 3.9 mmol/L (3.5-5.5); Sodium, Blood 142 mmol/L (136-145)
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
--- NOTE | 2019-04-27 18:03 | NUR ---
SHIFT SUMMARY: PT IS A/O X 3-4 THIS SHIFT WITH MOMENTS FOR FORGETFULLNESS. SHE HAS NOT HAD MUCH OF AN APPETITE TODAY DESPITE STAFF AND FAMILY OFFERING DIFFERENT OPTIONS. PT DID C/O REYNA THIS MORNING FOR WHICH PRN MEDS WERE EFFECTIVE. URIBE REMAINS INTACT AND PATENT. HAS BEEN AT BEDSIDE SINCE THIS MORNING AND DAUGHTER SINCE THIS AFTERNOON. PT HAS A GOOD SUPPORT SYSTEM. PT IS SITTING UP IN BED EATING DINNER. SHE CALLS FOR HELP WHEN NEEDED.
--- NOTE | 2019-04-28 03:21 | NUR ---
DNR. AOX3. LS ARE SLIGHTLY COARSE, NO C/O SOB. BS PRESENT, PASSING GAS, NO C/O NAUSEA. PAIN RATED 5/10 IN FEET. TRAMADOL GIVEN @ 2100. BG 133 HS SO NO INSULIN GIVEN. NYSTATIN POWDER APPLIED TO ABDOMINAL FOLDS. URIBE DRAINING CLEAR YELLOW. TELE IS RUNNING SR IN THE 90'S. VSS. UNSURE OF DC PLAN AT THIS TIME.
[2019-04-28 09:05] LABS: BASOPHILS ABSOLUTE AUTO 0.08 K/mm3 (0.00-0.23); BASOPHILS PERCENT AUTO 1 % (0-2); EOSINOPHILS ABSOLUTE AUTO 0.34 K/mm3 (0.00-0.68); EOSINOPHILS PERCENT AUTO 3 % (0-6); Hematocrit 34.5 % (33.0-51.0); Hemoglobin 10.7 g/dL (11.5-16.0); IMMATURE GRAN ABSOLUTE AUTO 0.08 K/mm3 (0.00-0.10); IMMATURE GRAN PERCENT AUTO 1 % (0-1); LYMPHOCYTES ABSOLUTE AUTO 1.85 K/mm3 (0.84-5.20); LYMPHOCYTES PERCENT AUTO 17 % (21-46); MONOCYTES ABSOLUTE AUTO 0.92 K/mm3 (0.16-1.47); MONOCYTES PERCENT AUTO 8 % (4-13); Mean Corpuscular HGB 29.8 pg (26.0-34.0); Mean Platelet Volume 10.9 fL (9.1-12.4); NEUTROPHILS ABSOLUTE AUTO 7.93 K/mm3 (1.96-9.15); NEUTROPHILS PERCENT AUTO 71 % (41-73); Platelet Count 168 K/mm3 (150-400); RDW Standard Deviation 56.2 fL (35.1-46.3); Red Blood Cell Count 3.59 M/mm3 (3.80-5.20)
[2019-04-28 09:15] LABS: Albumin, Blood 2.5 g/dL (3.4-5.0); Anion Gap 8 mmol/L (6-16); Blood Urea Nitrogen 45 mg/dL (8-24); Bun/Creatinine Ratio 15.2 (12.0-20.0); CO2, Blood 20 mmol/L (21-32); Calcium, Blood 8.3 mg/dL (8.5-10.1); Chloride, Blood 112 mmol/L (98-108); Creatinine, Blood 2.96 mg/dL (0.40-1.00); Glomerular Filtration Rate 17 (60-); Glucose, Blood 122 mg/dL (70-99); Phosphorus, Blood 4.9 mg/dL (2.5-4.9); Potassium, Blood 5.2 mmol/L (3.5-5.5); Sodium, Blood 140 mmol/L (136-145)
[2019-04-28 10:00] LABS: Mean Corpuscular Volume 96 fL (80-100)
--- NOTE | 2019-04-28 17:25 | NUR ---
SHIFT SUMMARY: PT IS A/O X 3 WITH MILD FORGETFULNESS AT TIMES. PT C/O PAIN AND STATES THAT PAIN MEDS ARE EFFECTIVE WHEN GIVEN. PT CONTINUES TO HAVE A POOR APPETITE. DIFFERENT FOOD OPTIONS CONTINUE TO BE OFFERED. AND DAUGHTER HAVE BEEN AT BEDSIDE MOST OF DAY. NO ACUTE CHANGES OBSERVED THIS SHIFT. PT CALLS FOR HELP WHEN NEEDED.
--- NOTE | 2019-04-29 04:54 | NUR ---
shift summary. Pt medicated x 2 with percocet for feet pain during the night with good relief. Pt otherwise sleeping duringthe shift. Pt on telemetry- SR at 86 per telecommunications repairer. Pt alert, oriented and appropriate. No significant changes during shift.
--- NOTE | 2019-04-29 17:43 | NUR ---
SHIFT SUMMARY PT DID ASK FOR TYLENOL TODAY DUE TO FOOT PAIN. TELEMETRY SHOWS 83 BPM SINUS RHYTHM. PLAN IS FOR DC WITH HOME HEALTH. WE DID GET HER UP INTO THE CHAIR FOR MANY HOURS TODAY. PT IS A&O X4 AND ABLE TO STATE HER NEEDS. NO INSULIN COVERAGE WAS NECESSARY TODAY
--- NOTE | 2019-04-30 05:23 | NUR ---
PT continues with camacho cath, patent and drains clear yellow urine. Tolerating modified diet and activity. Up in chair for meals. PT co neuropathic pain 8/10 bilat feet. Medicated with ultram 50 mg po x 1 with helpful effect and this AM percocet 5/325 mg for foot pain. Hoping to dc home with home health on Dc, Spouse assists with cares.
[2019-04-30 05:49] LABS: Albumin, Blood 2.7 g/dL (3.4-5.0); Anion Gap 7 mmol/L (6-16); Blood Urea Nitrogen 43 mg/dL (8-24); CO2, Blood 22 mmol/L (21-32); Calcium, Blood 8.7 mg/dL (8.5-10.1); Chloride, Blood 108 mmol/L (98-108); Creatinine, Blood 2.87 mg/dL (0.40-1.00); Glomerular Filtration Rate 17 (60-); Glucose, Blood 119 mg/dL (70-99); Phosphorus, Blood 5.6 mg/dL (2.5-4.9); Potassium, Blood 5.1 mmol/L (3.5-5.5); Sodium, Blood 137 mmol/L (136-145)
[2019-04-30] MEDS ORDERED: TRAM50 PO (13:29)
[2019-04-30] MEDS ORDERED: HYDRA25 PO (13:31)
[2019-04-30] MEDS ORDERED: METO25ER PO (13:31)
[2019-04-30] MEDS ORDERED: Isosorbide Mono30 MG PO (13:32)
--- NOTE | 2019-04-30 15:13 | NUR ---
1500 PATIENT DISCHARGE TO HOME WITH . NURSE WENT OVER DISCHARGE PAPERS WITH FAMILY. MEDS SENT TO PHARMACY OF CHOICE. PICC REMOVED BY CHARGE NURSE. CATH REMOVED PRIOR BY DISC RECORDIST DURING SHOWER. PATIENT TO BE TAKEN HOME BY [facility]. BELONGINGS PACKED BY FAMILY.
== END 2019-04-30 15:34 | disposition home health service (06) | DRG 682 ==
LOC: ER 22:07 → MEDS 04-21 02:37 → ENPENDDIS 04-30 10:30 → MEDS 04-30 15:34
PROVIDERS: Emergency Medicine; Family Medicine; Internal Medicine; ADMIT Internal Medicine
DX: N17.9 Acute kidney failure, unspecified (principal); G92 Toxic encephalopathy; I50.41 Acute combined systolic (congestive) and diastolic (congestive) heart failure; K52.1 Toxic gastroenteritis and colitis; E87.2 Acidosis; I13.0 Hypertensive heart and chronic kidney disease with heart failure and stage 1 through stage 4 chronic kidney disease, or unspecified chronic kidney disease; I42.9 Cardiomyopathy, unspecified; R33.8 Other retention of urine; E87.6 Hypokalemia; E78.5 Hyperlipidemia, unspecified; N31.9 Neuromuscular dysfunction of bladder, unspecified; E11.9 Type 2 diabetes mellitus without complications; D69.6 Thrombocytopenia, unspecified; E66.3 Overweight; T36.95XA Adverse effect of unspecified systemic antibiotic, initial encounter; N26.1 Atrophy of kidney (terminal); N18.3 Chronic kidney disease, stage 3 (moderate); Z68.35 Body mass index [BMI] 35.0-35.9, adult; I08.3 Combined rheumatic disorders of mitral, aortic and tricuspid valves
CPT/HCPCS: 0097U; 36415; 51701; 51702; 70450; 70551; 71046; 76770; 80048; 80053; 80069; 81001; 82570; 82947; 83735; 83880; 84100; 84132; 84300; 84443; 85025; 85027; 92507; 92523; 92526; 92610; 93005; 93010; 93306; 96360-59; 96361-59; 97110; 97112; 97116; 97162; 97166; 97530; 97535; 99285-25; J0360; J1650; J1940; J2997; J3480; J7030; J7050; J7120

== ENCOUNTER 2019-12-28 10:23 | Emergency (ER) | payer OTHER ==
[~2019-12-28 10:23] MED LIST changes: +HYDRA25 PO; +Isosorbide Mono30 MG PO; +TRAM50 PO; +Tessalon Perle100 MG PO
== END 2019-12-28 11:44 | disposition home or self-care (01) ==
DX: K64.4 Residual hemorrhoidal skin tags (principal); K59.00 Constipation, unspecified; F41.9 Anxiety disorder, unspecified; F32.9 Major depressive disorder, single episode, unspecified; I10 Essential (primary) hypertension; Z88.8 Allergy status to other drugs, medicaments and biological substances; Z88.5 Allergy status to narcotic agent; Z79.899 Other long term (current) drug therapy; Z87.891 Personal history of nicotine dependence

== ENCOUNTER 2020-07-15 20:49 | Emergency (ER) | payer OTHER ==
[~2020-07-15] VITALS: Ht 160 cm; Wt 90.3 kg
== END 2020-07-15 21:56 | disposition home or self-care (01) ==
LOC: ER 20:49
DX: S93.401A Sprain of unspecified ligament of right ankle, initial encounter (principal); F41.9 Anxiety disorder, unspecified; F32.9 Major depressive disorder, single episode, unspecified; I10 Essential (primary) hypertension; Z79.899 Other long term (current) drug therapy; Z79.84 Long term (current) use of oral hypoglycemic drugs; Z88.8 Allergy status to other drugs, medicaments and biological substances; Z88.5 Allergy status to narcotic agent; Z87.891 Personal history of nicotine dependence; W18.30XA Fall on same level, unspecified, initial encounter
CPT/HCPCS: 29515; 99282-25

== ENCOUNTER → 2020-07-24 | Outpatient (CLI) | payer OTHER ==
[2020-07-24 16:33] LABS: Appearance, Urine Clear (Clear); Bilirubin, Urine Neg (Neg); Blood, Urine Neg (Neg); Color, Urine Yellow (P-Yellow); Glucose Qualitative, Urine Neg (Neg); Ketones, Urine Neg (Neg); Leukocyte Esterase, Urine Neg (Neg); Nitrite, Urine Neg (Neg); Protein, Urine Neg (Neg); Specific Gravity, Urine 1.015 (1.003-1.022); Urobilinogen, Urine NORM (Normal)
== END | disposition home or self-care (01) ==
LOC: LAB 15:08
PROVIDERS: Internal Medicine
DX: N39.0 Urinary tract infection, site not specified (principal)
CPT/HCPCS: 81003

== ENCOUNTER 2022-05-21 23:14 | Inpatient (IN) | payer OTHER ==
[~2022-05-21] VITALS: Ht 162.6 cm; Wt 87.1 kg
[~2022-05-21 23:14] MED LIST changes: -BUPR150ER PO; +BUPROPION XL150 M1 PO; +HYDR10 PO; -HYDRA25 PO; +ISOSORBIDE MONO60 MG PO; -Isosorbide Mono30 MG PO; -Omeprazole20 M1 PO
[2022-05-21 23:49] LABS: BASOPHILS ABSOLUTE AUTO 0.05 K/mm3 (0.00-0.23); BASOPHILS PERCENT AUTO 1 % (0-2); EOSINOPHILS ABSOLUTE AUTO 0.24 K/mm3 (0.00-0.68); EOSINOPHILS PERCENT AUTO 3 % (0-6); Hematocrit 33.8 % (33.0-51.0); Hemoglobin 11.3 g/dL (11.5-16.0); IMMATURE GRAN ABSOLUTE AUTO 0.03 K/mm3 (0.00-0.10); IMMATURE GRAN PERCENT AUTO 0 % (0-1); LYMPHOCYTES ABSOLUTE AUTO 0.95 K/mm3 (0.84-5.20); LYMPHOCYTES PERCENT AUTO 12 % (21-46); MONOCYTES ABSOLUTE AUTO 0.48 K/mm3 (0.16-1.47); MONOCYTES PERCENT AUTO 6 % (4-13); Mean Corpuscular HGB 30.3 pg (26.0-34.0); Mean Corpuscular HGB Conc 33.4 g/dL (31.5-36.5); Mean Corpuscular Volume 91 fL (80-100); Mean Platelet Volume 9.7 fL (9.1-12.4); NEUTROPHILS PERCENT AUTO 77 % (41-73); Platelet Count 130 K/mm3 (150-400); RDW Coefficient Variation 11.9 % (11.7-14.2); RDW Standard Deviation 39.5 fL (35.1-46.3); Red Blood Cell Count 3.73 M/mm3 (3.80-5.20); White Blood Cell Count 7.65 K/mm3 (4.00-11.30)
[2022-05-22 00:03] LABS: Albumin, Blood 3.3 g/dL (3.4-5.0); Albumin/Globulin Ratio 1.1 (0.8-1.8); Bilirubin, Total 0.5 mg/dL (0.1-1.0); Bun/Creatinine Ratio 11.7 (12.0-20.0); Creatinine, Blood 1.62 mg/dL (0.40-1.00); Globulin, Blood 2.9 g/dL (2.2-4.0); Potassium, Blood 3.8 mmol/L (3.5-5.5); Total Protein, Blood 6.2 g/dL (6.4-8.2)
[2022-05-22 00:33] LABS: Source, Urine Straight Cath
[2022-05-22 00:41] LABS: Appearance, Urine Hazy (Clear); Bilirubin, Urine Neg (Neg); Blood, Urine Neg (Neg); Color, Urine Yellow (P-Yellow); Glucose Qualitative, Urine Neg (Neg); Ketones, Urine Neg (Neg); Leukocyte Esterase, Urine 2+ (Neg); Nitrite, Urine Pos (Neg); Protein, Urine Neg (Neg); Specific Gravity, Urine 1.015 (1.003-1.022); Urobilinogen, Urine NORM (Normal)
[2022-05-22 00:49] LABS: Bacteria Many /hpf; Red Blood Cells, Urine Not Seen /hpf (0-2); Squamous Epithelial Cells Rare /hpf (Few)
[2022-05-22] MEDS ORDERED: Percocet 10-321 EACH PO (03:33)
[2022-05-22 05:17] LABS: BASOPHILS ABSOLUTE AUTO 0.05 K/mm3 (0.00-0.23); BASOPHILS PERCENT AUTO 1 % (0-2); EOSINOPHILS ABSOLUTE AUTO 0.24 K/mm3 (0.00-0.68); EOSINOPHILS PERCENT AUTO 4 % (0-6); Hematocrit 33.3 % (33.0-51.0); IMMATURE GRAN ABSOLUTE AUTO 0.03 K/mm3 (0.00-0.10); IMMATURE GRAN PERCENT AUTO 0 % (0-1); LYMPHOCYTES ABSOLUTE AUTO 1.12 K/mm3 (0.84-5.20); LYMPHOCYTES PERCENT AUTO 16 % (21-46); MONOCYTES PERCENT AUTO 6 % (4-13); Mean Corpuscular HGB 30.2 pg (26.0-34.0); Mean Corpuscular Volume 92 fL (80-100); Mean Platelet Volume 9.6 fL (9.1-12.4); NEUTROPHILS ABSOLUTE AUTO 5.11 K/mm3 (1.96-9.15); NEUTROPHILS PERCENT AUTO 74 % (41-73); Platelet Count 126 K/mm3 (150-400); RDW Coefficient Variation 11.9 % (11.7-14.2); Red Blood Cell Count 3.64 M/mm3 (3.80-5.20); White Blood Cell Count 6.95 K/mm3 (4.00-11.30)
[2022-05-22 05:35] LABS: Albumin, Blood 3.1 g/dL (3.4-5.0); Albumin/Globulin Ratio 1.1 (0.8-1.8); Bilirubin, Total 0.6 mg/dL (0.1-1.0); Bun/Creatinine Ratio 11.4 (12.0-20.0); Calcium, Blood 8.6 mg/dL (8.5-10.1); Creatinine, Blood 1.49 mg/dL (0.40-1.00); Globulin, Blood 2.7 g/dL (2.2-4.0); Magnesium, Blood 1.6 mg/dL (1.6-2.4); Potassium, Blood 3.6 mmol/L (3.5-5.5); Total Protein, Blood 5.8 g/dL (6.4-8.2)
--- NOTE | 2022-05-22 06:29 | NUR ---
PT ARRIVED FROM ED WITH SOME CONFUSION. AFTER GRANDDAUGHTER AND LEFT PT BECAME MORE CONFUSED. WAS HAVING VISUAL HALLUCINATIONS. BELIEVED THAT HER DOG HAD BEEN IN THE ROOM. PT WAS ALSO BECOMING VERY PARANOID, TELLING THIS RN THAT SHE COULD NOT BELIEVE ME AND THAT SHE THOUGHT I WAS GOING TO "DO SOMETHING BAD TO HER". ATTEMPTED TO CALL WITH NO ANSWER. GRAND SURESH WATTS CALLED. PT REQUESTING TO GO HOME. REFUSED TO BE STRAIGHT CATH'D. ALLOWED PT TO ATTEMPT TO STRAIGHT CATH HERSELF BUT PT WAS TOO CONFUSED. ATTEMPTING TO PUT DRAWSTRING OF PANTS INTO THE END OF THE CATHETER. GRAND SURESH WATTS CAME IN AND IS AT BEDSIDE CURRENTLY ATTEMPTING TO REORIENT THE PATIENT. PT DID GET UP TO THE BSC AND HAD A EXTRA LARGE BOWEL MOVEMENT AND VOIDED 100 MLS.
[2022-05-22 07:15] LABS: Source, Urine Foley catheter
[2022-05-22 07:23] LABS: Bilirubin, Urine Neg (Neg); Blood, Urine 1+ (Neg); Glucose Qualitative, Urine Neg (Neg); Ketones, Urine Neg (Neg); Leukocyte Esterase, Urine 1+ (Neg); Nitrite, Urine Neg (Neg); Protein, Urine Neg (Neg); Urobilinogen, Urine NORM (Normal)
[2022-05-22 07:38] LABS: Appearance, Urine Clear (Clear); Color, Urine Pale Yellow (P-Yellow)
[2022-05-22 07:41] LABS: Bacteria Many /hpf; Red Blood Cells, Urine 0-2 /hpf (0-2); Squamous Epithelial Cells Rare /hpf (Few)
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
[2022-05-22 09:25] LABS: Thyroid Stimulating Hormone 1.02 uIU/mL (0.360-4.800)
--- NOTE | 2022-05-22 18:10 | NUR ---
SUMMARY- PT ALERT TO SELF AND FAMILY AND THAT SHE IS IN THE HOSPITAL. PT IS FORGETFUL AND MILDLY DELUSIONAL. HAVING VISUAL HALLUCINATIONS ALL DAY. ANIMALS CRAWLING OUT OF THE CEILING. A MIDGIT IN HER ROOM SHE WAS TALKING TO. PT ARGUING WITH FAMILY T/O THE DAY THAT SHE SHOULD BE ABLE TO GO HOME. FAMILY SUPPORTIVE AND IN ROOM ALL DAY. TOLERATED LUNCH AND DINNER. TAKING IN FLUIDS. URIBE PATENT- PT NORMALLY SELF CATHS AT HOME. RED UNDER PANUS AND YEAST APEARING WILL REPORT TO NOC RN. PT UP IN THE CHAIR FOR DINNER. FAMILY HOME FOR THE NIGHT, NEEDS TO REST AND TAKE CARE OF THE DOGS. PHONE #S ON THE BOARD.
[2022-05-22] MEDS ORDERED: VALSARTAN40 MG PO (21:27)
[2022-05-22] MEDS ORDERED: ATOR20 PO (21:28)
[2022-05-22] MEDS ORDERED: CYMBALTA30 M1 PO (21:33)
[2022-05-22] MEDS ORDERED: AMIT25 PO (21:34)
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
[2022-05-23 09:04] LABS: BASOPHILS ABSOLUTE AUTO 0.03 K/mm3 (0.00-0.23); BASOPHILS PERCENT AUTO 1 % (0-2); EOSINOPHILS ABSOLUTE AUTO 0.11 K/mm3 (0.00-0.68); EOSINOPHILS PERCENT AUTO 2 % (0-6); Hematocrit 30.8 % (33.0-51.0); Hemoglobin 10.4 g/dL (11.5-16.0); IMMATURE GRAN ABSOLUTE AUTO 0.04 K/mm3 (0.00-0.10); IMMATURE GRAN PERCENT AUTO 1 % (0-1); LYMPHOCYTES ABSOLUTE AUTO 0.98 K/mm3 (0.84-5.20); LYMPHOCYTES PERCENT AUTO 17 % (21-46); MONOCYTES ABSOLUTE AUTO 0.37 K/mm3 (0.16-1.47); MONOCYTES PERCENT AUTO 7 % (4-13); Mean Corpuscular HGB 30.1 pg (26.0-34.0); Mean Corpuscular HGB Conc 33.8 g/dL (31.5-36.5); Mean Corpuscular Volume 89 fL (80-100); Mean Platelet Volume 9.9 fL (9.1-12.4); NEUTROPHILS ABSOLUTE AUTO 4.14 K/mm3 (1.96-9.15); NEUTROPHILS PERCENT AUTO 73 % (41-73); Platelet Count 114 K/mm3 (150-400); RDW Coefficient Variation 11.9 % (11.7-14.2); Red Blood Cell Count 3.46 M/mm3 (3.80-5.20); White Blood Cell Count 5.67 K/mm3 (4.00-11.30)
[2022-05-23 09:17] LABS: Albumin/Globulin Ratio 1.1 (0.8-1.8); Bun/Creatinine Ratio 7.5 (12.0-20.0); Calcium, Blood 8.3 mg/dL (8.5-10.1); Creatinine, Blood 1.33 mg/dL (0.40-1.00); Globulin, Blood 2.7 g/dL (2.2-4.0); Potassium, Blood 3.3 mmol/L (3.5-5.5); Total Protein, Blood 5.7 g/dL (6.4-8.2)
--- NOTE | 2022-05-23 17:54 | NUR ---
SHIFT SUMMARY PATIENT DENIES PAIN, NAUSEA, AND SHORTNESS OF BREATH. PATIENT A&O X2 THIS MORNING, HALLUCINATING CATS AND A SMALL GIRL IN ROOM. PATIENT ATTEMTPED TO BE REORIENTED, PATIENT WOULD JUST LAUGH. PATIENT TOOK MEDICATIONS FOR THIS RN, LET LAB DRAW, AND LET THIS RN PLACE A NEW IV. PATIENT GOT MORE CONFUSED THE DAY WENT ON. PATIENT CONSTANTLY PULLING AT URIBE, IV, CLOTHES. PATIENT PLACED HEARING AIDE INSIDE HER VAGINA. WHEN ASKED WHY, SHE STATED "THEY TOLD ME TOO". NOTIFIED, NEW ORDERS FOR IM HALDOL. MEDICATION GIVEN. PATIENT CONTINUES TO BE CONFUSED, HALLUCINATING. PATIENT ATTMEPING TO GET OUT OF BED AND LEAVE MULTIPLE TIMES, LOOKING FOR . PATIENT IN ROOM WITH HER, SHE DID NOT RECOGNIZE HIM. BEHAVIORS PERSISTED EVEN 2HRS AFTER MEDICATION ADMINISTERED. THIS RN WENT TO CHECK ON PATIENT, FOUND PATIENT HAD PULLED CATHETER MORE, AND ATTEMPTED TO EAT POWDER SITTING ON SIDE TABLE, TABLE MOVED AWAY FROM PATIENT. NOTIFIED, NEW ORDERS FOR BILATERAL SOFT WRIST RESTRAINTS. PATIENT FAMILY UPDATED. AND DAUGHTER VISITED TODAY. PATIENT HAS POOR PO INTAKE. PATIENT CONTINUES TO HALLUCINATE PEOPLE AND ANIMALS IN ROOM. PATIENT IS MOSLTY PLEASANT WITH STAFF. NOTIFIED.
--- NOTE | 2022-05-24 03:49 | NUR ---
NIGHTSHIFT SUMMARY Patient alert/oriented to self, restless in bed. Start of shift patient pulling on soft wrist restraints, yelling out, asking staff to give her a knife so she could cut off straps. Patient pulled soft restraints off, and pulled out IV, patient got OOB and walked to hallway. Staff redirected patient back to her room, she allowed nurse to place new IV in left/hand. Applied vest, soft wrist restraints. Patient slept for about an hour, than awake. Patient sitting up in bed, slapping hands against the bed. PRN Xanax given, PRN not effective. Patient declined to take meds at HS. ABX IV infused. Vitals stable. Bed alarm activated & audible. Will continue to monitor.
[2022-05-24 05:42] LABS: Hematocrit 34.5 % (33.0-51.0); Hemoglobin 11.4 g/dL (11.5-16.0)
[2022-05-24 06:07] LABS: Albumin, Blood 3.2 g/dL (3.4-5.0); Bilirubin, Total 0.9 mg/dL (0.1-1.0); Bun/Creatinine Ratio 8.1 (12.0-20.0); Calcium, Blood 8.7 mg/dL (8.5-10.1); Creatinine, Blood 1.36 mg/dL (0.40-1.00); Globulin, Blood 3.1 g/dL (2.2-4.0); Potassium, Blood 3.3 mmol/L (3.5-5.5); Total Protein, Blood 6.3 g/dL (6.4-8.2)
--- NOTE | 2022-05-24 10:30 | NUR ---
GAVE UPDATE TO DAUGHTER VIA PHONE.
[2022-05-24] MEDS ORDERED: TRADJENTA5 MG PO (14:13)
--- NOTE | 2022-05-24 16:58 | NUR ---
SHIFT SUMMARY- VSS. CONFUSED. SOME MOMENTS OF HALLUCINATIONS, CATS/ DIFFERENT NURSES IN ROOM. PT REQUESTS "KNIFE NEEDED TO CUT HER SELF LOSE AND GET OUT OF HERE" PT IS UNCLEAR THAT SHE IS IN THE HOSPITAL AT TIMES. PT BECOMING PARANOID AFTERNOON PROGRESSES. PT APPETITE OK, NEEDS FLIGHT OPERATIONS SPECIALIST FEEDINGS. PT AMBULATED TO AND FROM SHOWER 2 ASSIST. REPLACED TEGADERM IV WRAP, IT WAS LOOSE. PT SLEPT A FEW HOURS OF SHIFT. PT WILTH CALL LIGHT IN REACH, BED ALARM ON, AND SIDE RAILS UP FOR SAFETY. SPOKE WITH DAUGHTER 2 TIMES VIA TELEPHONE TO GIVE UP DATE OF CARE.
--- NOTE | 2022-05-25 04:45 | NUR ---
SHIFT SUMMARY 76 YR F ADMITTED ON 05/21/22 FOR AMS/UTI. FULL CODE. PT WAS TAKEN OUT OF WRIST RESTRAINTS AND TICO VEST AT APPROX 0115 TODAY. SHE CALLED OUT TO THIS NURSE FOR HELP AND WAS VERY TEARFUL AND SINCERE IN HER PLIGHT TO HAVE RESTRAINTS REMOVED. SHE WAS LUCID AND DID NOT APPEAR TO BE CONFUSED. THIS NURSE SPENT AT LEAST 30 MINUTES TALKING TO PT AND CAME TO THE CONCLUSION THAT SHE IS NO LONGER A DANGER TO HERSELF FAR PULLING ON LINES AND TRYING TO GET OUT OF BED W/O ASSISTANCE. ONCE RESTRAINTS WERE REMOVED, PT SLEPT COMFORTABLY FOR SEVERAL HOURS. SHE ALSO STATED THAT SHE IS EBARASSED BY HER PRIOR BEHAVIOR AND HAS NO IDEA WHAT CAME OVER HER. THIS NURSE EXPLAINED TO HER WHAT CAN HAPPEN WITH A BAD UTI AND THAT IT WAS NOT HER FAULT AND SHE HAD NO CONTROL OVER IT.
[2022-05-25 05:27] LABS: Calcium, Blood 8.1 mg/dL (8.5-10.1); Creatinine, Blood 1.45 mg/dL (0.40-1.00); Potassium, Blood 3.6 mmol/L (3.5-5.5)
[2022-05-25] MEDS ORDERED: CIPR500 PO (17:20)
[2022-05-25] MEDS ORDERED: VISBIOME 112.51 EACH PO (17:21)
--- NOTE | 2022-05-25 17:54 | NUR ---
SHIFT SUMMARY- VSS. PT A&O X2. LESS CONFUSED. APPETITE OK. IV INFLITERATED, OK'D NO IV AND PO MEDS FOR TONIGHT. FAMILY CONCERNED ABOUT DISCHARGE TONIGHT. DISCUSSED WITH . WILL CONTINUE TO MONITOR, SIDE RAILS UP, CALL LIGHT IN REACH.
--- NOTE | 2022-05-26 04:32 | NUR ---
SHIFT SUMMARY 76 YR F ADMITTED ON 05/21/22 FOR AMS/UTI. FULL CODE. NO ACUTE CHANGES THIS SHIFT. PT IS A&O X 4 AND EXHIBITS NO CONFUSION. SHE IS VERY PLEASANT AND STATES THAT SHE IS STILL EMBARASSED BY HER PREVIOUS BEHAVIOR WHEN SHE WAS CONFUSED. SHE STATES IT IS COMPLETELY DIFFERENT THAN HER BASELINE. SHE STATES SHE FEELS SO MUCH BETTER AND IS HOPING TO GO HOME TOMORROW. LEFT HAND IS STILL SWOLLEN AND HER WEDDING RING IS VERY TIGHT ON HER FINGER. SHE HAD HER ARM ICED AND ELEVATED THIS SHIFT AND THAT SEEMED TO OFFER SOME RELIEF.
--- NOTE | 2022-05-26 11:57 | NUR ---
PATIENT DISCHARGED TO HOME WITH FAMILY ASSIST. OUT TO LOBBY VIA PATIENTS OWN WHEEL CHAIR. DAUGHTER AND SPOUSE VERBALIZED DC INSTRUCTIONS ALONG WITH PATIENT. DAUGHTER WILL CALL WHEN HOME TO MAKE APPOINTMENT FOR PATIENT TO BE SEEN WITHIN ONE OR TWO WEEKS BY PCP.
== END 2022-05-26 11:00 | disposition home health service (06) | DRG 689 ==
LOC: ER 23:14 → MEDS 23:15 → ENPENDDIS 05-25 17:49 → MEDS 05-26 11:00
PROVIDERS: Family Medicine; Family Medicine Adult Medicine; Internal Medicine; Student in an Organized Health Care Education/Training Program; ADMIT Internal Medicine
DX: N39.0 Urinary tract infection, site not specified (principal); G92.8 Other toxic encephalopathy; N17.9 Acute kidney failure, unspecified; G89.29 Other chronic pain; E11.22 Type 2 diabetes mellitus with diabetic chronic kidney disease; R44.1 Visual hallucinations; E87.6 Hypokalemia; M79.642 Pain in left hand; N18.30 Chronic kidney disease, stage 3 unspecified; I12.9 Hypertensive chronic kidney disease with stage 1 through stage 4 chronic kidney disease, or unspecified chronic kidney disease; B96.20 Unspecified Escherichia coli [E. coli] as the cause of diseases classified elsewhere; E11.42 Type 2 diabetes mellitus with diabetic polyneuropathy; F41.8 Other specified anxiety disorders; B96.89 Other specified bacterial agents as the cause of diseases classified elsewhere; E86.0 Dehydration; W19.XXXA Unspecified fall, initial encounter; Z88.8 Allergy status to other drugs, medicaments and biological substances; Z88.5 Allergy status to narcotic agent; Z79.899 Other long term (current) drug therapy; Z79.891 Long term (current) use of opiate analgesic; Z86.718 Personal history of other venous thrombosis and embolism; Z87.01 Personal history of pneumonia (recurrent); Z87.09 Personal history of other diseases of the respiratory system; Z98.890 Other specified postprocedural states; Z87.820 Personal history of traumatic brain injury; Z98.49 Cataract extraction status, unspecified eye; Z90.721 Acquired absence of ovaries, unilateral
CPT/HCPCS: 36415; 51701; 70450; 73120; 80048; 80053; 81001; 82140; 82607; 82746; 82947; 83735; 84443; 85014; 85018; 85025; 87077; 87086; 87186; 93005; 93010; 97110; 97162; 97166; 97530; 97535; 99285-25; A9270; J0744; J1630; J1644; J7030

== ENCOUNTER → 2022-06-18 | Outpatient (CLI) | payer OTHER ==
[~2022-06-18] MED LIST changes: +AMIT25 PO; +ATOR20 PO; +CIPR500 PO; +CYMBALTA30 M1 PO; +Percocet 10-321 EACH PO; +TRADJENTA5 MG PO; +VALSARTAN40 MG PO; +VISBIOME 112.51 EACH PO
[2022-06-18 16:26] LABS: BASOPHILS ABSOLUTE AUTO 0.05 K/mm3 (0.00-0.23); BASOPHILS PERCENT AUTO 1 % (0-2); EOSINOPHILS PERCENT AUTO 3 % (0-6); Hemoglobin 12.5 g/dL (11.5-16.0); IMMATURE GRAN ABSOLUTE AUTO 0.02 K/mm3 (0.00-0.10); IMMATURE GRAN PERCENT AUTO 0 % (0-1); LYMPHOCYTES ABSOLUTE AUTO 1.66 K/mm3 (0.84-5.20); LYMPHOCYTES PERCENT AUTO 26 % (21-46); MONOCYTES ABSOLUTE AUTO 0.29 K/mm3 (0.16-1.47); MONOCYTES PERCENT AUTO 5 % (4-13); Mean Corpuscular HGB Conc 32.9 g/dL (31.5-36.5); Mean Corpuscular Volume 91 fL (80-100); Mean Platelet Volume 10.1 fL (9.1-12.4); NEUTROPHILS ABSOLUTE AUTO 4.07 K/mm3 (1.96-9.15); NEUTROPHILS PERCENT AUTO 65 % (41-73); Platelet Count 146 K/mm3 (150-400); RDW Coefficient Variation 12.5 % (11.7-14.2); RDW Standard Deviation 41.6 fL (35.1-46.3); Red Blood Cell Count 4.16 M/mm3 (3.80-5.20); White Blood Cell Count 6.29 K/mm3 (4.00-11.30)
[2022-06-18 16:49] LABS: Magnesium, Blood 1.5 mg/dL (1.6-2.4)
[2022-06-18 16:53] LABS: Thyroid Stimulating Hormone 2.67 uIU/mL (0.360-4.800)
[2022-06-18 16:54] LABS: Albumin, Blood 3.4 g/dL (3.4-5.0); Albumin/Globulin Ratio 1.1 (0.8-1.8); Bilirubin, Total 0.4 mg/dL (0.1-1.0); Bun/Creatinine Ratio 10.4 (12.0-20.0); Calcium, Blood 8.6 mg/dL (8.5-10.1); Creatinine, Blood 1.34 mg/dL (0.40-1.00); Globulin, Blood 3.1 g/dL (2.2-4.0); Potassium, Blood 4.3 mmol/L (3.5-5.5); Total Protein, Blood 6.5 g/dL (6.4-8.2)
== END | disposition home or self-care (01) ==
LOC: LAB 15:35 → LAB SHORT 15:35
PROVIDERS: Nurse Practitioner Family
DX: R41.0 Disorientation, unspecified (principal)
CPT/HCPCS: 80053; 83735; 84443; 85025

== ENCOUNTER 2023-02-24 18:26 | Emergency (ER) | payer OTHER ==
[~2023-02-24] VITALS: Ht 162.6 cm; Wt 85.7 kg
[2023-02-24 19:11] LABS: BASOPHILS ABSOLUTE AUTO 0.04 K/mm3 (0.00-0.23); BASOPHILS PERCENT AUTO 0 % (0-2); EOSINOPHILS ABSOLUTE AUTO 0.15 K/mm3 (0.00-0.68); EOSINOPHILS PERCENT AUTO 2 % (0-6); Hematocrit 37.3 % (33.0-51.0); Hemoglobin 12.3 g/dL (11.5-16.0); IMMATURE GRAN ABSOLUTE AUTO 0.03 K/mm3 (0.00-0.10); IMMATURE GRAN PERCENT AUTO 0 % (0-1); LYMPHOCYTES ABSOLUTE AUTO 1.79 K/mm3 (0.84-5.20); LYMPHOCYTES PERCENT AUTO 20 % (21-46); MONOCYTES ABSOLUTE AUTO 0.51 K/mm3 (0.16-1.47); MONOCYTES PERCENT AUTO 6 % (4-13); Mean Corpuscular HGB 30.1 pg (26.0-34.0); Mean Corpuscular Volume 91 fL (80-100); Mean Platelet Volume 9.3 fL (9.1-12.4); NEUTROPHILS ABSOLUTE AUTO 6.65 K/mm3 (1.96-9.15); NEUTROPHILS PERCENT AUTO 73 % (41-73); Platelet Count 141 K/mm3 (150-400); RDW Coefficient Variation 12.1 % (11.7-14.2); RDW Standard Deviation 40.3 fL (35.1-46.3); Red Blood Cell Count 4.08 M/mm3 (3.80-5.20); White Blood Cell Count 9.17 K/mm3 (4.00-11.30)
[2023-02-24 19:30] LABS: Albumin, Blood 3.7 g/dL (3.4-5.0); Albumin/Globulin Ratio 1.1 (0.8-1.8); Bilirubin, Total 0.5 mg/dL (0.1-1.0); Bun/Creatinine Ratio 15.2 (12.0-20.0); Calcium, Blood 9.4 mg/dL (8.5-10.1); Creatinine, Blood 1.45 mg/dL (0.40-1.00); Globulin, Blood 3.5 g/dL (2.2-4.0); Potassium, Blood 4.2 mmol/L (3.5-5.5); Total Protein, Blood 7.2 g/dL (6.4-8.2)
[2023-02-24 20:13] LABS: Appearance, Urine Clear (Clear); Bilirubin, Urine Neg (Neg); Blood, Urine Neg (Neg); Color, Urine Yellow (P-Yellow); Glucose Qualitative, Urine Neg (Neg); Ketones, Urine Neg (Neg); Leukocyte Esterase, Urine 1+ (Neg); Nitrite, Urine Neg (Neg); Protein, Urine Neg (Neg); Specific Gravity, Urine 1.015 (1.003-1.022); Urobilinogen, Urine NORM (Normal)
[2023-02-24 20:36] LABS: Bacteria Mod /hpf; Red Blood Cells, Urine Not Seen /hpf (0-2); Squamous Epithelial Cells Few /hpf (Few); White Blood Cells, Urine 0-2 /hpf (0-5)
[2023-02-24] MEDS ORDERED: CEPH500 PO (20:54)
[2023-02-24 21:30] VITALS: BP 129/76
== END 2023-02-24 21:38 | disposition home or self-care (01) ==
LOC: ER 18:26
PROVIDERS: Emergency Medicine
DX: N39.0 Urinary tract infection, site not specified (principal); Z87.891 Personal history of nicotine dependence; Z79.899 Other long term (current) drug therapy; Z88.5 Allergy status to narcotic agent; Z88.8 Allergy status to other drugs, medicaments and biological substances
CPT/HCPCS: 51701; 80053; 81001; 85025; 87086; 96365-59; 99283-25; J0696

== ENCOUNTER 2023-02-25 18:21 | Inpatient (IN) | payer OTHER ==
[~2023-02-25] VITALS: Ht 160 cm; Wt 89.1 kg
[~2023-02-25 18:21] MED LIST changes: +CEPH500 PO
[2023-02-25 19:10] LABS: BASOPHILS ABSOLUTE AUTO 0.05 K/mm3 (0.00-0.23); BASOPHILS PERCENT AUTO 1 % (0-2); EOSINOPHILS ABSOLUTE AUTO 0.19 K/mm3 (0.00-0.68); EOSINOPHILS PERCENT AUTO 2 % (0-6); Hematocrit 34.1 % (33.0-51.0); Hemoglobin 11.1 g/dL (11.5-16.0); IMMATURE GRAN ABSOLUTE AUTO 0.07 K/mm3 (0.00-0.10); IMMATURE GRAN PERCENT AUTO 1 % (0-1); LYMPHOCYTES PERCENT AUTO 22 % (21-46); MONOCYTES ABSOLUTE AUTO 0.52 K/mm3 (0.16-1.47); MONOCYTES PERCENT AUTO 6 % (4-13); Mean Corpuscular HGB Conc 32.6 g/dL (31.5-36.5); Mean Corpuscular Volume 92 fL (80-100); Mean Platelet Volume 9.4 fL (9.1-12.4); NEUTROPHILS ABSOLUTE AUTO 5.97 K/mm3 (1.96-9.15); NEUTROPHILS PERCENT AUTO 69 % (41-73); Platelet Count 140 K/mm3 (150-400); RDW Coefficient Variation 12.1 % (11.7-14.2); RDW Standard Deviation 41.1 fL (35.1-46.3)
[2023-02-25 19:24] LABS: Albumin, Blood 3.4 g/dL (3.4-5.0); Albumin/Globulin Ratio 1.1 (0.8-1.8); Bilirubin, Total 0.3 mg/dL (0.1-1.0); Bun/Creatinine Ratio 12.8 (12.0-20.0); Creatinine, Blood 1.48 mg/dL (0.40-1.00); Globulin, Blood 3.1 g/dL (2.2-4.0); Potassium, Blood 4.5 mmol/L (3.5-5.5); Total Protein, Blood 6.5 g/dL (6.4-8.2)
[2023-02-25 21:43] LABS: Source, Urine Foley catheter
[2023-02-25 21:47] LABS: Bilirubin, Urine Neg (Neg); Blood, Urine 3+ (Neg); Glucose Qualitative, Urine Neg (Neg); Ketones, Urine Neg (Neg); Leukocyte Esterase, Urine 1+ (Neg); Nitrite, Urine Neg (Neg); Protein, Urine Neg (Neg); Urobilinogen, Urine NORM (Normal)
[2023-02-25 21:53] LABS: Appearance, Urine Clear (Clear); Color, Urine Yellow (P-Yellow)
[2023-02-25 21:54] LABS: Bacteria Rare /hpf; Squamous Epithelial Cells Few /hpf (Few); White Blood Cells, Urine 0-2 /hpf (0-5)
[2023-02-25 22:16] VITALS: BP 140/93
[2023-02-26] VITALS (17 sets, daily range): BP systolic 103–147; BP diastolic 57–104
[2023-02-26 03:57] LABS: BASOPHILS ABSOLUTE AUTO 0.03 K/mm3 (0.00-0.23); BASOPHILS PERCENT AUTO 0 % (0-2); EOSINOPHILS ABSOLUTE AUTO 0.05 K/mm3 (0.00-0.68); EOSINOPHILS PERCENT AUTO 1 % (0-6); Hematocrit 31.9 % (33.0-51.0); Hemoglobin 10.5 g/dL (11.5-16.0); IMMATURE GRAN ABSOLUTE AUTO 0.07 K/mm3 (0.00-0.10); IMMATURE GRAN PERCENT AUTO 1 % (0-1); LYMPHOCYTES ABSOLUTE AUTO 1.07 K/mm3 (0.84-5.20); LYMPHOCYTES PERCENT AUTO 11 % (21-46); MONOCYTES PERCENT AUTO 6 % (4-13); Mean Corpuscular HGB Conc 32.9 g/dL (31.5-36.5); Mean Corpuscular Volume 91 fL (80-100); Mean Platelet Volume 9.1 fL (9.1-12.4); NEUTROPHILS ABSOLUTE AUTO 7.82 K/mm3 (1.96-9.15); NEUTROPHILS PERCENT AUTO 81 % (41-73); Platelet Count 116 K/mm3 (150-400); RDW Coefficient Variation 12.1 % (11.7-14.2); RDW Standard Deviation 40.1 fL (35.1-46.3); White Blood Cell Count 9.64 K/mm3 (4.00-11.30)
[2023-02-26 04:34] LABS: Albumin, Blood 3.4 g/dL (3.4-5.0); Albumin/Globulin Ratio 1.2 (0.8-1.8); Bilirubin, Total 0.3 mg/dL (0.1-1.0); Bun/Creatinine Ratio 13.9 (12.0-20.0); Creatinine, Blood 1.44 mg/dL (0.40-1.00); Globulin, Blood 2.8 g/dL (2.2-4.0); Magnesium, Blood 1.5 mg/dL (1.6-2.4); Potassium, Blood 4.6 mmol/L (3.5-5.5); Total Protein, Blood 6.2 g/dL (6.4-8.2)
--- NOTE | 2023-02-26 05:20 | NUR ---
SHIFT SUMMARY ADMITTED LAST NIGHT FOR R HIP FX. HAS BEEN NPO FOR PLANNED SURGERY TODAY. AOX3-MILDLY FORGETFUL & FORGETS WHERE SHE IS AT TIMES. HX DEMENTIA. DOES HAVE TANGETABLE NONSENSICAL RESPONSES TO SOME QUESTIONS. REPORTS 8-10/10 PAIN IN R HIP c MIN MOVEMENT, MEDICATED 2x c 25MCG IV FENT & PT ABLE TO REST FOR A FEW HOURS. URIBE CATH PLACED IN ER SINCE PT NORMALLY SELF CATHS. CALL LIGHT & BED ALARM IN PLACE.
--- NOTE | 2023-02-26 14:09 | NUR ---
ARRIVAL FROM PACU PT ARRIVED FROM PACU AT 1400. PT PLEASANT AND AWAKE, DENIES PAIN. FULL SENSATION TO FEET, WIGGLES TOES ON COMMAND. TWO PRESSURE DRESSINGS CDI TO R HIP. BED ALARM ON PT PLACED ON 3L NASAL CANULA SATS 94%. PT TOLERATING WATER WELL AT THIS TIME. NO NAUSEA
[2023-02-27 01:28] VITALS: BP 128/77
[2023-02-27 05:22] VITALS: BP 119/75
[2023-02-27 05:30] LABS: BASOPHILS ABSOLUTE AUTO 0.02 K/mm3 (0.00-0.23); BASOPHILS PERCENT AUTO 0 % (0-2); EOSINOPHILS ABSOLUTE AUTO 0.01 K/mm3 (0.00-0.68); EOSINOPHILS PERCENT AUTO 0 % (0-6); Hematocrit 27.2 % (33.0-51.0); Hemoglobin 9.1 g/dL (11.5-16.0); IMMATURE GRAN ABSOLUTE AUTO 0.08 K/mm3 (0.00-0.10); IMMATURE GRAN PERCENT AUTO 1 % (0-1); LYMPHOCYTES ABSOLUTE AUTO 1.04 K/mm3 (0.84-5.20); LYMPHOCYTES PERCENT AUTO 9 % (21-46); MONOCYTES ABSOLUTE AUTO 0.78 K/mm3 (0.16-1.47); MONOCYTES PERCENT AUTO 7 % (4-13); Mean Corpuscular HGB 30.7 pg (26.0-34.0); Mean Corpuscular HGB Conc 33.5 g/dL (31.5-36.5); Mean Corpuscular Volume 92 fL (80-100); Mean Platelet Volume 10.3 fL (9.1-12.4); NEUTROPHILS ABSOLUTE AUTO 9.68 K/mm3 (1.96-9.15); NEUTROPHILS PERCENT AUTO 83 % (41-73); Platelet Count 117 K/mm3 (150-400); RDW Coefficient Variation 12.1 % (11.7-14.2); RDW Standard Deviation 40.8 fL (35.1-46.3); Red Blood Cell Count 2.96 M/mm3 (3.80-5.20); White Blood Cell Count 11.61 K/mm3 (4.00-11.30)
[2023-02-27 05:56] LABS: Bun/Creatinine Ratio 15.2 (12.0-20.0); Calcium, Blood 8.4 mg/dL (8.5-10.1); Creatinine, Blood 1.25 mg/dL (0.40-1.00); Magnesium, Blood 2.1 mg/dL (1.6-2.4); Potassium, Blood 4.9 mmol/L (3.5-5.5)
--- NOTE | 2023-02-27 07:35 | NUR ---
SHIFT SUMMARY AOX2-FORGETFUL PLACE, SITUATION @TIMES. VSS. DENIES N/V OR DYSPNEA. REPORTED PAIN IN R HIP, MEDICATED 1x c 25MCG FENTANYL & 1X c 5MG OXYCODONE, PT RESTED WELL T/O NIGHT. POD 1- R HIP PINNING. STRONG PULSE, CAP REFIL <3 SEC, ABLE TO WIGGLE TOES, PRESSURE DRESSING IN PLACE TO R HIP C/D/I. URIBE PATENT & DRAINED 1050 ML LIGHT YELLOW URINE OUT THIS SHIFT. CALL LIGHT & BED ALARM IN PLACE.
[2023-02-27 07:36] VITALS: BP 128/70
[2023-02-27 15:24] VITALS: BP 95/55
--- NOTE | 2023-02-27 18:28 | NUR ---
SHIFT SUMMARY PT A&OX2/CONFUSED, REPOSITIONED WITH ASSIST, NOT OOB TODAY, PAIN MANAGED, REJI PO - LOW INTAKE, URIBE PATENT & DRAINING YELLOW URINE/STAT LOCK ON/OFF FLOOR, IVF @ 80 MLS/HR. POD1 R HIP NAILING, AQUACEL CDI, TTWB. FIRE PREVENTION EDU, IGNITION ASSESSMENT. WILL REPORT TO ONCOMING MINE AGUAYO.
[2023-02-27 19:16] VITALS: BP 114/55
[2023-02-28 04:07] VITALS: BP 145/88
[2023-02-28 07:02] VITALS: BP 106/62
--- NOTE | 2023-02-28 07:26 | NUR ---
SUMMARY PT WITH NO ACUTE CHANGES TONIGHT. NO RISK OF IGNITION /FIRE HAZARD IDENTIFIED.
[2023-02-28 08:49] LABS: BASOPHILS ABSOLUTE AUTO 0.03 K/mm3 (0.00-0.23); BASOPHILS PERCENT AUTO 0 % (0-2); EOSINOPHILS ABSOLUTE AUTO 0.17 K/mm3 (0.00-0.68); EOSINOPHILS PERCENT AUTO 2 % (0-6); Hematocrit 24.4 % (33.0-51.0); Hemoglobin 7.9 g/dL (11.5-16.0); IMMATURE GRAN ABSOLUTE AUTO 0.07 K/mm3 (0.00-0.10); IMMATURE GRAN PERCENT AUTO 1 % (0-1); LYMPHOCYTES ABSOLUTE AUTO 1.42 K/mm3 (0.84-5.20); LYMPHOCYTES PERCENT AUTO 17 % (21-46); MONOCYTES ABSOLUTE AUTO 0.53 K/mm3 (0.16-1.47); MONOCYTES PERCENT AUTO 6 % (4-13); Mean Corpuscular HGB 30.2 pg (26.0-34.0); Mean Corpuscular HGB Conc 32.4 g/dL (31.5-36.5); Mean Corpuscular Volume 93 fL (80-100); Mean Platelet Volume 9.7 fL (9.1-12.4); NEUTROPHILS ABSOLUTE AUTO 6.36 K/mm3 (1.96-9.15); NEUTROPHILS PERCENT AUTO 74 % (41-73); Platelet Count 115 K/mm3 (150-400); RDW Coefficient Variation 12.2 % (11.7-14.2); RDW Standard Deviation 41.4 fL (35.1-46.3); Red Blood Cell Count 2.62 M/mm3 (3.80-5.20); White Blood Cell Count 8.58 K/mm3 (4.00-11.30)
[2023-02-28 09:19] LABS: Bun/Creatinine Ratio 14.9 (12.0-20.0); Calcium, Blood 8.4 mg/dL (8.5-10.1); Creatinine, Blood 1.14 mg/dL (0.40-1.00); Potassium, Blood 4.4 mmol/L (3.5-5.5)
--- NOTE | 2023-02-28 09:30 | NUR ---
PT AND ROOM ASSESSED FOR IGNITION SOURCES, NO FINDINGS.
--- NOTE | 2023-02-28 09:50 | NUR ---
DR. CHUNG NOTIFIED OF DECREASING H&H, LOW NORMAL BP AND ELEVATED HR. PER DR. CHUNG, HYDRALAZINE WAS HELD, METOPROLOL GIVEN AND ASA HELD. WILL CONTINUE TO MONITOR AND PLAN FOR REPEAT H&H THIS AFTERNOON.
[2023-02-28 10:01] VITALS: BP 136/73
[2023-02-28 15:22] LABS: Hematocrit 24.5 % (33.0-51.0); Hemoglobin 7.8 g/dL (11.5-16.0)
[2023-02-28 15:54] VITALS: BP 135/68
--- NOTE | 2023-02-28 17:35 | NUR ---
SHIFT SUMMARY PT IS POD#3 FROM R HIP NAILING. PAIN MANAGED WITH TYLENOL AND OXYCODONE. PT HAS DECLINED ASSISTANCE REPOSITIONING T/O THE DAY. THIS EVENING SHE WAS REPOSITIONED WELL AND SKIN IS IN GOOD CONDITION, SHE WAS ALSO PROVIDED WITH A BED BATH AND PERFORMED HER OWN ORAL CARE. FAMILY HAS BEEN AT THE BEDSIDE FOR SUPPORT, SHE RESPONDS WELL TO FAMILY. H&H LOW, DR. CHUNG AWARE, PLAN TO CONTINUE WITH XARELTO AT THIS TIME PER DR. CHUNG. VSS. PT HAS NOT REQUIRED COVERAGE FOR BLOOD GLUCOSE LEVELS. SHE CONTINUES TO HAVE A DECREASED APPETITE AND TELLS STAFF THAT NOTHING SOUNDS GOOD. WILL MONITOR UNTIL REPORT TO NOC RN.
[2023-02-28 19:15] VITALS: BP 120/90
[2023-03-01 04:18] VITALS: BP 131/76
--- NOTE | 2023-03-01 04:29 | NUR ---
SHIFT SUMMARY NO ACUTE CHANGES THIS SHIFT. PT RESTED WELL. ALERT AND ORIENTED TO SELF AND FOLLOWING DIRECTIONS. COOPERATIVE AND PLEASANT. DENIES PAIN. R HIP DRESSING REMAINS CDI. ICE IN PLACE FOR COMFORT. URIBE INTACT AND DRAINING TO GRAVITY. BED ALARM IN PLACE. NO IGNITION SOURCES IDENTIFIED. CALL LIGHT WITHIN REACH.
[2023-03-01 05:27] LABS: BASOPHILS ABSOLUTE AUTO 0.03 K/mm3 (0.00-0.23); BASOPHILS PERCENT AUTO 0 % (0-2); EOSINOPHILS PERCENT AUTO 3 % (0-6); Hematocrit 22.3 % (33.0-51.0); Hemoglobin 7.1 g/dL (11.5-16.0); IMMATURE GRAN ABSOLUTE AUTO 0.06 K/mm3 (0.00-0.10); IMMATURE GRAN PERCENT AUTO 1 % (0-1); LYMPHOCYTES ABSOLUTE AUTO 1.28 K/mm3 (0.84-5.20); LYMPHOCYTES PERCENT AUTO 16 % (21-46); MONOCYTES ABSOLUTE AUTO 0.52 K/mm3 (0.16-1.47); MONOCYTES PERCENT AUTO 7 % (4-13); Mean Corpuscular HGB 29.8 pg (26.0-34.0); Mean Corpuscular HGB Conc 31.8 g/dL (31.5-36.5); Mean Corpuscular Volume 94 fL (80-100); Mean Platelet Volume 9.7 fL (9.1-12.4); NEUTROPHILS ABSOLUTE AUTO 5.82 K/mm3 (1.96-9.15); NEUTROPHILS PERCENT AUTO 74 % (41-73); Platelet Count 125 K/mm3 (150-400); RDW Coefficient Variation 12.1 % (11.7-14.2); RDW Standard Deviation 41.5 fL (35.1-46.3); Red Blood Cell Count 2.38 M/mm3 (3.80-5.20); White Blood Cell Count 7.91 K/mm3 (4.00-11.30)
[2023-03-01 06:10] LABS: Bun/Creatinine Ratio 13.8 (12.0-20.0); Calcium, Blood 8.2 mg/dL (8.5-10.1); Creatinine, Blood 1.09 mg/dL (0.40-1.00); Potassium, Blood 4.4 mmol/L (3.5-5.5)
[2023-03-01 07:26] VITALS: BP 121/74
[2023-03-01 13:58] LABS: Hematocrit 23.7 % (33.0-51.0); Hemoglobin 7.7 g/dL (11.5-16.0)
[2023-03-01 14:01] VITALS: BP 130/80
--- NOTE | 2023-03-01 17:25 | NUR ---
SUMMARY: POD3 R HIP NAILING. NO ACUTE CHANGE TODAY. VSS, A/O-FORGETFUL, EASILY REORIENTED. SURGICAL SITE WNL, CDI. PT DID NOT AGREE TO WORK WITH OT OR PT BUT THIS RN AND CHAITANYA WEBBER HELPED HER OUT OF BED TO COMMODE X2. PT DID WELL WITH 2 ASSIST AND FWW, DID NEED REMINDED AND EDUCATED ON TTWB. PT HAD A LARGE BLACK BM, DR. CHUNG NOTIFIED. PT ABLE TO SELF CATH AFTER URIBE REMOVED. THIS RN ATTEMPTED TO WEAN PT FROM 2L O2, WAS UNABLE. PT DROPS TO 87% ON RA. PT DENIES CP OR SOB. PAIN SEEMS WELL MANAGED WITH 1 OXYCODONE.PT STILL REPORTS DECREASED APPETITE. PT RECEIVED FIRST DOSE OF PO PROTONIX TONIGHT. UNABLE TO COLLECT STOOL GUAIAC THIS SHIFT. PT USING CALL LIGHT, NO ACUTE CONCERNS.
[2023-03-01 19:15] VITALS: BP 132/65
[2023-03-02] VITALS (10 sets, daily range): BP systolic 108–142; BP diastolic 60–86
--- NOTE | 2023-03-02 05:21 | NUR ---
02 WEANING DECREASED O2 TO 1L NC, WILL MONITOR FOR SATS TO REMAIN ABOVE 92% VIA CONTINUOUS BIOX
[2023-03-02 05:41] LABS: BASOPHILS ABSOLUTE AUTO 0.05 K/mm3 (0.00-0.23); BASOPHILS PERCENT AUTO 1 % (0-2); EOSINOPHILS ABSOLUTE AUTO 0.23 K/mm3 (0.00-0.68); EOSINOPHILS PERCENT AUTO 3 % (0-6); Hematocrit 20.9 % (33.0-51.0); Hemoglobin 6.8 g/dL (11.5-16.0); IMMATURE GRAN ABSOLUTE AUTO 0.11 K/mm3 (0.00-0.10); IMMATURE GRAN PERCENT AUTO 1 % (0-1); LYMPHOCYTES ABSOLUTE AUTO 1.44 K/mm3 (0.84-5.20); LYMPHOCYTES PERCENT AUTO 16 % (21-46); MONOCYTES PERCENT AUTO 8 % (4-13); Mean Corpuscular HGB 30.1 pg (26.0-34.0); Mean Corpuscular HGB Conc 32.5 g/dL (31.5-36.5); Mean Corpuscular Volume 93 fL (80-100); Mean Platelet Volume 9.6 fL (9.1-12.4); NEUTROPHILS ABSOLUTE AUTO 6.59 K/mm3 (1.96-9.15); NEUTROPHILS PERCENT AUTO 72 % (41-73); Platelet Count 132 K/mm3 (150-400); RDW Coefficient Variation 12.2 % (11.7-14.2); Red Blood Cell Count 2.26 M/mm3 (3.80-5.20); White Blood Cell Count 9.12 K/mm3 (4.00-11.30)
--- NOTE | 2023-03-02 06:59 | NUR ---
CALL TO DR. CHUNG R/T DECREASE IN H&h V/O FOR 1 UNIT PRBC, ORDERED
--- NOTE | 2023-03-02 07:43 | NUR ---
SHIFT SUMMARY POD4 R HIP PINNING, AQUACEL DRESSING INTACT W/ MINIMAL DRAINAGE VISIBLE. PT MEDICATED FOR PAIN W/ OXY AND TYLENOL 1X THIS SHIFT. PT PLEASANTLY DISORIENTED OFTEN, EASILY REDIRECTED. PT 2 ASSIST TO COMMODE W/ WALKER/ GB, AWAITING OCCULT GUIAC STOOL SAMPLE. PT SELF CATHS AT HOME FOR URINE. CONTINUOUS EDUCATION AND REDIRECTION NEEDED FOR STERILE TECHNIQUE. PT LABS DRAWN THIS A.M. TYPE AND SCREEN, FOR ADMIN OF 1 UNIT PRBC R/T CONTINUED DECREASE IN H&h PER DR. CHUNG. DR CHUNG IN TO SEE PT CURRENTLY. REPORT GIVEN TO ONCOMING RN. CALL LIGHT W/IN REACH.
[2023-03-02 08:13] LABS: FERRITIN 477 ng/mL (15-150)
--- NOTE | 2023-03-02 13:40 | NUR ---
pt tolerated transfusion well, no signs of transfusion reactions. educated patient and family members in room about transfusion.
--- NOTE | 2023-03-02 14:08 | NUR ---
PT LAST ATE AT APPROX 1210 AND HAD TWO SMALL BITES OF POTATOES PER DAUGHTER IN ROOM. WATER AND FOOD REMOVED FROM ROOM AT THIS TIME AND PT EDUCATED ON NPO STATUS. PER DR. MASON CHECKED WITH ORTHO, DR. SHELDON, REGARDING POSITIONING DURING PROCEDURE. DR. SHELDON REPORTS SHE IS FINE FOR UPPER ENDOSCOPY AND NO POSITIONING RESTRICTIONS.
[2023-03-02 14:10] LABS: IRON BIND.CAP.(TIBC) 182 ug/dL (250-450); IRON SATURATION 25 % (15-55); IRON, SERUM 46 ug/dL (27-139); UIBC 136 ug/dL (118-369)
[2023-03-02 15:24] LABS: Hematocrit 26.3 % (33.0-51.0); Hemoglobin 8.8 g/dL (11.5-16.0)
--- NOTE | 2023-03-02 17:11 | NUR ---
SHIFT SUMMARY POD 4 R HIP NAILING. PT UP IN CHAIR FOR MOST OF SHIFT, WORKED WITH PT/OT TODAY. TOLERATED BLOOD WELL. PAIN CONTROLLED PER EMAR. PT PLEASANTLY CONFUSED DURING SHIFT. COOPERATIVE WITH CARE. PT STRAIGHT CATHS SELF. PT HAS BEEN NPO SINCE NOON (SEE PREVIOUS NOTE) PLAN IS FOR UPPER ENDOSCOPY THIS EVENING. FAMILY AT BEDSIDE EDUCATED ON PLAN. PT AGREEABLE AT THIS TIME.
--- NOTE | 2023-03-02 18:08 | NUR ---
OUT OF ROOM FOR ENDOSCOPY AT THIS TIME
--- NOTE | 2023-03-02 18:25 | NUR ---
03/02/23 [address] RONDON; SEE ANESTHESIA RECORDS.
[2023-03-03 00:14] VITALS: BP 133/74
[2023-03-03 03:48] LABS: BASOPHILS ABSOLUTE AUTO 0.05 K/mm3 (0.00-0.23); BASOPHILS PERCENT AUTO 1 % (0-2); EOSINOPHILS ABSOLUTE AUTO 0.22 K/mm3 (0.00-0.68); EOSINOPHILS PERCENT AUTO 3 % (0-6); Hematocrit 23.5 % (33.0-51.0); Hemoglobin 7.9 g/dL (11.5-16.0); IMMATURE GRAN ABSOLUTE AUTO 0.11 K/mm3 (0.00-0.10); IMMATURE GRAN PERCENT AUTO 1 % (0-1); LYMPHOCYTES ABSOLUTE AUTO 1.26 K/mm3 (0.84-5.20); LYMPHOCYTES PERCENT AUTO 17 % (21-46); MONOCYTES ABSOLUTE AUTO 0.63 K/mm3 (0.16-1.47); MONOCYTES PERCENT AUTO 8 % (4-13); Mean Corpuscular HGB 31.1 pg (26.0-34.0); Mean Corpuscular HGB Conc 33.6 g/dL (31.5-36.5); Mean Corpuscular Volume 93 fL (80-100); NEUTROPHILS ABSOLUTE AUTO 5.36 K/mm3 (1.96-9.15); NEUTROPHILS PERCENT AUTO 70 % (41-73); Platelet Count 133 K/mm3 (150-400); RDW Coefficient Variation 12.4 % (11.7-14.2); RDW Standard Deviation 41.2 fL (35.1-46.3); Red Blood Cell Count 2.54 M/mm3 (3.80-5.20); White Blood Cell Count 7.63 K/mm3 (4.00-11.30)
[2023-03-03 05:07] VITALS: BP 134/75
[2023-03-03 07:23] VITALS: BP 153/87
[2023-03-03 15:12] LABS: Hematocrit 25.6 % (33.0-51.0); Hemoglobin 8.5 g/dL (11.5-16.0)
[2023-03-03 16:08] VITALS: BP 114/62
--- NOTE | 2023-03-03 17:06 | NUR ---
SUMMARY: PT IS POD5 R HIP REPAIR. A/O, FORGETFUL BUT EASILY REORIENTED AND APPROPRIATE. VSS, SURGICAL SITE WNL. PT AGREED TO WORK WITH PT/OT AND ABLE TO TRANSFER TO CHAIR WITH 1-2 ASSIST AND FWW. PAIN SEEMS TO BE MANAGED WITH 1 OXY PRN. ABLE TO SELF CATH WITHOUT DIFFICULTY, THIS RN EDUCATED PT ON THE IMPORTANCE OF HAND WASHING BEFORE CATHING. PT SEEMS TO BE EATING A LITTLE MORE, ALTHOUGH SHE REFUSES TO EAT MAJOR FOOD GROUPS AND "PREFERS ICE CREAM". CONTINUING TO MONITOR S/SX OF ANEMIA, HGB LEVELS. PT ASYMPTOMATIC THIS SHIFT. WILL CTM AND REPORT TO NOC RN.
--- NOTE | 2023-03-03 17:44 | NUR ---
PT EDUCATED ON RISK OF IGNITION SOURCES AND RISK OF INJURY WHILE USING OXYGEN. PAT DENIES SMOKING OR HAVING A PROCESS ENG AND VERBALIZED UNDERSTANDING
[2023-03-03 19:22] VITALS: BP 124/63
[2023-03-04 04:00] VITALS: BP 133/73
[2023-03-04 04:14] LABS: BASOPHILS ABSOLUTE AUTO 0.05 K/mm3 (0.00-0.23); BASOPHILS PERCENT AUTO 1 % (0-2); EOSINOPHILS ABSOLUTE AUTO 0.29 K/mm3 (0.00-0.68); EOSINOPHILS PERCENT AUTO 3 % (0-6); Hematocrit 25.3 % (33.0-51.0); Hemoglobin 8.4 g/dL (11.5-16.0); IMMATURE GRAN ABSOLUTE AUTO 0.16 K/mm3 (0.00-0.10); IMMATURE GRAN PERCENT AUTO 2 % (0-1); LYMPHOCYTES ABSOLUTE AUTO 1.77 K/mm3 (0.84-5.20); LYMPHOCYTES PERCENT AUTO 21 % (21-46); MONOCYTES PERCENT AUTO 8 % (4-13); Mean Corpuscular HGB 30.9 pg (26.0-34.0); Mean Corpuscular HGB Conc 33.2 g/dL (31.5-36.5); Mean Corpuscular Volume 93 fL (80-100); Mean Platelet Volume 9.2 fL (9.1-12.4); NEUTROPHILS ABSOLUTE AUTO 5.53 K/mm3 (1.96-9.15); NEUTROPHILS PERCENT AUTO 65 % (41-73); Platelet Count 160 K/mm3 (150-400); RDW Coefficient Variation 12.6 % (11.7-14.2); RDW Standard Deviation 42.4 fL (35.1-46.3); Red Blood Cell Count 2.72 M/mm3 (3.80-5.20)
--- NOTE | 2023-03-04 04:22 | NUR ---
SHIFT SUMMARY NO ACUTE CHANGES. PT HAS BEEN REPOSITIONING SELF IN BED INDEPENDENTLY. AQUACEL DRESSINGS TO HIP X2 REMAIN UNCHANGED. TYLENOL + ROXICODONE FOR BACK PAIN. PT HAS BEEN ALERT AND ORIENTED X4 ALL SHIFT. BED ALARM IN PLACE FOR SAFETY. PT SELF CATHS AT BASELINE. PT REQUESTS TO STRAIGHT CATH AT END OF SHIFT OR BEAM WORKER BEFORE BREAKFAST. CALL LIGHT WITHIN REACH.
[2023-03-04 04:41] LABS: Bun/Creatinine Ratio 13.4 (12.0-20.0); Calcium, Blood 8.8 mg/dL (8.5-10.1); Creatinine, Blood 1.12 mg/dL (0.40-1.00); Potassium, Blood 4.2 mmol/L (3.5-5.5)
[2023-03-04 07:05] VITALS: BP 119/73
--- NOTE | 2023-03-04 08:39 | NUR ---
PT ASSESSED FOR IGNITION RISKS, NO FINDINGS.
[2023-03-04 15:53] VITALS: BP 112/76
--- NOTE | 2023-03-04 17:01 | NUR ---
SHIFT SUMMARY PT IS S/P R HIP PINNING. PAIN MANAGED WITH OXYCODONE AND TYLENOL. PT IS A 1-2 PERSON ASSIST. PT HAS BEEN ALERT, ORIENTED AND APPROPRIATE THIS SHIFT. SHE FOLLOWS DIRECTION WELL AND HAS PARTICIPATE WITH THERAPY. WILL MONITOR UNTIL REPORT TO NOC RN.
[2023-03-04 20:17] VITALS: BP 124/61
[2023-03-04 22:35] VITALS: BP 126/75
[2023-03-05 04:13] VITALS: BP 112/77
[2023-03-05 07:10] VITALS: BP 136/76
--- NOTE | 2023-03-05 08:40 | NUR ---
FIRE SAFETY EDUCATED ON FIRE SAFETY. PT VERBALIZED UNDERSTANDING, DENIES POSSESSION OF ANY MATCHES/LIGHTERS/CIGARETTES, ETC.
--- NOTE | 2023-03-05 09:28 | NUR ---
SUMMARY NO BMS TONIGHT.REPORTED SLEPT WELL. NO STOOLS,NO EVIDENCE OF GI BLEED.
[2023-03-05 14:51] VITALS: BP 111/67
--- NOTE | 2023-03-05 17:15 | NUR ---
SUMMARY NO ACUTE CHANGES T/O SHIFT. MEDICATED PT PER ORDERS FOR PAIN. PT SITTING UP IN RECLINER. FAMILY HAS BEEN IN AND OUT T/O SHIFT TO VISIT. CALL LIGHT IN REACH.
[2023-03-05 20:40] VITALS: BP 124/70
[2023-03-05 21:31] VITALS: BP 113/76
[2023-03-06 04:09] VITALS: BP 113/53
[2023-03-06 04:23] LABS: BASOPHILS ABSOLUTE AUTO 0.06 K/mm3 (0.00-0.23); BASOPHILS PERCENT AUTO 1 % (0-2); EOSINOPHILS ABSOLUTE AUTO 0.26 K/mm3 (0.00-0.68); EOSINOPHILS PERCENT AUTO 3 % (0-6); Hematocrit 25.4 % (33.0-51.0); Hemoglobin 8.4 g/dL (11.5-16.0); IMMATURE GRAN ABSOLUTE AUTO 0.11 K/mm3 (0.00-0.10); IMMATURE GRAN PERCENT AUTO 1 % (0-1); LYMPHOCYTES ABSOLUTE AUTO 2.34 K/mm3 (0.84-5.20); LYMPHOCYTES PERCENT AUTO 27 % (21-46); MONOCYTES ABSOLUTE AUTO 0.76 K/mm3 (0.16-1.47); MONOCYTES PERCENT AUTO 9 % (4-13); Mean Corpuscular HGB 30.9 pg (26.0-34.0); Mean Corpuscular HGB Conc 33.1 g/dL (31.5-36.5); Mean Corpuscular Volume 93 fL (80-100); NEUTROPHILS ABSOLUTE AUTO 5.11 K/mm3 (1.96-9.15); NEUTROPHILS PERCENT AUTO 59 % (41-73); Platelet Count 174 K/mm3 (150-400); RDW Coefficient Variation 12.8 % (11.7-14.2); RDW Standard Deviation 41.5 fL (35.1-46.3); Red Blood Cell Count 2.72 M/mm3 (3.80-5.20); White Blood Cell Count 8.64 K/mm3 (4.00-11.30)
[2023-03-06 07:51] VITALS: BP 133/69
--- NOTE | 2023-03-06 08:03 | NUR ---
SUMMARY PT WITH NO ACUTE CHANGES. NEEDING TO REMAIN IN ISO.NO EVIDENCE OF GI BLEED.
[2023-03-06 15:05] VITALS: BP 130/81
--- NOTE | 2023-03-06 19:46 | NUR ---
SHIFT SUMMARY POD5 R HIP REPAIR, A/OX4, VSS, TOLERATING PO, PAIN WELL MANAGED, DISCHARGE HELD DUE TO POWER OUTAGE AT HOME. DISCUSSED [place] ACT [place] 1980 PROHIBITING SMOKING INSIDE MOST PUBLIC BUILDINGS IN [place] INCLUDING HOSPITALS, PT AGREES TO NOT SMOKE WHILE HERE AND NOT HAVING ANY IGNITION SOURCES. NO ACUTE EVENTS THIS SHIFT, CALL LIGHT IN REACH, REPORT GIVEN TO MINE AGUAYO.
[2023-03-06 19:47] VITALS: BP 126/67
[2023-03-07 04:41] VITALS: BP 114/67
[2023-03-07 08:03] VITALS: BP 125/72
--- NOTE | 2023-03-07 09:40 | NUR ---
DISCHARGE SUMMARY POD9 R HIP REPAIR AFTER GLF AT HOME, A/OX4, VSS, TOLERATING PO, PAIN WELL MANAGED, DOING WELL WITH THERAPY, MINIMAL ASSISTANCE NEEDED WITH TRANSFERS PRIMARILY SBA, 2 AQUACELLS TO R HIP/MID THIGH BOTH C/D/I. PT DOES NOT HAVE ANY IGNITION SOURCES TO BE RETURNED. PT ASSISTED WITH GATHERING UP HER PERSONAL ITEMS, PICKED UP BY EMS TO BE TAKEN HOME.
== END 2023-03-07 09:33 | disposition home or self-care (01) | DRG 481 ==
LOC: ER 18:21 → SURS 18:22
PROVIDERS: Emergency Medicine; Internal Medicine; Orthopaedic Surgery; Student in an Organized Health Care Education/Training Program; ADMIT Student in an Organized Health Care Education/Training Program
PROC: 0T9B70Z Drainage of Bladder with Drainage Device, Via Natural or Artificial Opening (ICD-10-PCS; 2023-02-25)
PROC: 0QS634Z Reposition Right Upper Femur with Internal Fixation Device, Percutaneous Approach (ICD-10-PCS; principal; 2023-02-26 10:45)
PROC: 0DJ08ZZ Inspection of Upper Intestinal Tract, Via Natural or Artificial Opening Endoscopic (ICD-10-PCS; 2023-03-02)
PROC: 30233N1 Transfusion of Nonautologous Red Blood Cells into Peripheral Vein, Percutaneous Approach (ICD-10-PCS; 2023-03-02)
DX: S72.141A Displaced intertrochanteric fracture of right femur, initial encounter for closed fracture (principal); D62 Acute posthemorrhagic anemia; N17.9 Acute kidney failure, unspecified; W18.30XA Fall on same level, unspecified, initial encounter; E11.22 Type 2 diabetes mellitus with diabetic chronic kidney disease; E11.40 Type 2 diabetes mellitus with diabetic neuropathy, unspecified; F41.9 Anxiety disorder, unspecified; F32.A Depression, unspecified; I12.9 Hypertensive chronic kidney disease with stage 1 through stage 4 chronic kidney disease, or unspecified chronic kidney disease; K22.70 Barrett's esophagus without dysplasia; K44.9 Diaphragmatic hernia without obstruction or gangrene; K31.7 Polyp of stomach and duodenum; N18.31 Chronic kidney disease, stage 3a; F03.A0 Unspecified dementia, mild, without behavioral disturbance, psychotic disturbance, mood disturbance, and anxiety; D63.1 Anemia in chronic kidney disease; R82.71 Bacteriuria; K21.9 Gastro-esophageal reflux disease without esophagitis; E78.5 Hyperlipidemia, unspecified; D69.6 Thrombocytopenia, unspecified; E66.9 Obesity, unspecified; R33.9 Retention of urine, unspecified; E87.6 Hypokalemia; G89.29 Other chronic pain; Z98.890 Other specified postprocedural states; Z86.718 Personal history of other venous thrombosis and embolism; Z86.19 Personal history of other infectious and parasitic diseases; Z87.01 Personal history of pneumonia (recurrent); Z87.820 Personal history of traumatic brain injury; Z88.5 Allergy status to narcotic agent; Z88.8 Allergy status to other drugs, medicaments and biological substances; Z79.899 Other long term (current) drug therapy; Z79.2 Long term (current) use of antibiotics; Z90.721 Acquired absence of ovaries, unilateral; Z90.79 Acquired absence of other genital organ(s); Z87.891 Personal history of nicotine dependence; Z86.010 Personal history of colon polyps; Z87.19 Personal history of other diseases of the digestive system; Z68.34 Body mass index [BMI] 34.0-34.9, adult
CPT/HCPCS: 36415; 51702; 71045; 72100; 73502; 80048; 80053; 81001; 82728; 82947; 83540; 83550; 83735; 85014; 85018; 85025; 86850; 86900; 86901; 86923; 93005; 93010; 94762; 96374-59; 96375; 96375-59; 96376; 97110; 97110-CQ; 97116; 97162; 97165; 97530; 97535; 99285-25; A9270; C1713; C1769; G0378; J0171; J0690; J0696; J1100; J1815; J1885; J2001; J2250; J2371; J2405; J2704; J3010; J3475; J3480; J7030; J7050; J7120; P9016

== ENCOUNTER → 2023-12-08 | Outpatient (CLI) | payer OTHER ==
[~2023-12-08] MED LIST changes: +Aspir 8181 MG PO; +BUPR150ER PO; -BUPROPION XL150 M1 PO; +CALC.25 PO; +CEFD300 PO; +CRANBERRY500 M1 PO; +DOCU100 PO; +SULFAMETHOXAZO1 EAC1
== END | disposition home or self-care (01) ==
LOC: LAB SHORT 12:34 → LAB 12:34
DX: Z09 Encounter for follow-up examination after completed treatment for conditions other than malignant neoplasm (principal); E11.42 Type 2 diabetes mellitus with diabetic polyneuropathy
CPT/HCPCS: 82043

== ENCOUNTER → 2024-05-29 | Outpatient (CLI) | payer OTHER ==
[2024-05-29 13:16] LABS: Source, Urine Clean Catch
[2024-05-29 14:22] LABS: Appearance, Urine Hazy (Clear); Bilirubin, Urine Neg (Neg); Blood, Urine Neg (Neg); Color, Urine Yellow (P-Yellow); Glucose Qualitative, Urine Neg (Neg); Ketones, Urine Neg (Neg); Leukocyte Esterase, Urine 3+ (Neg); Nitrite, Urine Neg (Neg); Protein, Urine 2+ (Neg); Specific Gravity, Urine 1.025 (1.003-1.022); Urobilinogen, Urine NORM (Normal)
[2024-05-29 15:22] LABS: Amorphous Light (0-Heavy); Bacteria Many /hpf; Hyaline Casts 0-2 /lpf (0-2); Squamous Epithelial Cells Mod /hpf (Few); White Blood Cells, Urine 25-50 /hpf (0-5)
[2024-05-29 15:23] LABS: Renal Epithelial Rare /hpf (0-Rare)
== END | disposition home or self-care (01) ==
LOC: LAB 13:14 → LAB SHORT 13:14
PROVIDERS: Hospitalist
DX: R33.9 Retention of urine, unspecified (principal)
CPT/HCPCS: 81001; 87086

== ENCOUNTER 2024-11-06 10:41 | Emergency (ER) | payer OTHER ==
[~2024-11-06] VITALS: Ht 162.6 cm; Wt 77.1 kg
[2024-11-06 11:23] LABS: BASOPHILS ABSOLUTE AUTO 0.07 K/mm3 (0.00-0.23); BASOPHILS PERCENT AUTO 1 % (0-2); EOSINOPHILS ABSOLUTE AUTO 0.14 K/mm3 (0.00-0.68); EOSINOPHILS PERCENT AUTO 1 % (0-6); Hematocrit 35.8 % (33.0-51.0); Hemoglobin 11.6 g/dL (11.5-16.0); IMMATURE GRAN ABSOLUTE AUTO 0.04 K/mm3 (0.00-0.10); IMMATURE GRAN PERCENT AUTO 0 % (0-1); LYMPHOCYTES PERCENT AUTO 14 % (21-46); MONOCYTES ABSOLUTE AUTO 0.59 K/mm3 (0.16-1.47); MONOCYTES PERCENT AUTO 6 % (4-13); Mean Corpuscular HGB 31.3 pg (26.0-34.0); Mean Corpuscular HGB Conc 32.4 g/dL (31.5-36.5); Mean Corpuscular Volume 97 fL (80-100); Mean Platelet Volume 9.3 fL (9.1-12.4); NEUTROPHILS ABSOLUTE AUTO 8.09 K/mm3 (1.96-9.15); NEUTROPHILS PERCENT AUTO 78 % (41-73); Platelet Count 125 K/mm3 (150-400); RDW Coefficient Variation 12.8 % (11.7-14.2); RDW Standard Deviation 45.4 fL (35.1-46.3); Red Blood Cell Count 3.71 M/mm3 (3.80-5.20); White Blood Cell Count 10.43 K/mm3 (4.00-11.30)
[2024-11-06 11:45] LABS: Albumin/Globulin Ratio 0.9 (0.8-1.8); Bilirubin, Total 0.8 mg/dL (0.1-1.0); Bun/Creatinine Ratio 11.9 (12.0-20.0); Calcium, Blood 9.1 mg/dL (8.5-10.1); Creatinine, Blood 1.34 mg/dL (0.40-1.00); Globulin, Blood 3.4 g/dL (2.2-4.0); Potassium, Blood 4.3 mmol/L (3.5-5.5); Total Protein, Blood 6.4 g/dL (6.4-8.2)
[2024-11-06 13:31] VITALS: BP 142/87
[2024-11-06 13:47] LABS: Source, Urine Straight Cath
[2024-11-06 13:55] LABS: Appearance, Urine Clear (Clear); Bilirubin, Urine Neg (Neg); Blood, Urine 3+ (Neg); Color, Urine Yellow (P-Yellow); Glucose Qualitative, Urine Neg (Neg); Ketones, Urine Neg (Neg); Leukocyte Esterase, Urine 1+ (Neg); Nitrite, Urine Neg (Neg); Protein, Urine Neg (Neg); Urobilinogen, Urine NORM (Normal); pH, Urine 6.5 (5.0-8.0)
[2024-11-06 14:32] LABS: Bacteria Many /hpf; Squamous Epithelial Cells Mod /hpf (Few)
== END 2024-11-06 14:52 | disposition home or self-care (01) ==
LOC: ER 10:41
PROVIDERS: Emergency Medicine
DX: S16.1XXA Strain of muscle, fascia and tendon at neck level, initial encounter (principal); S09.90XA Unspecified injury of head, initial encounter; W19.XXXA Unspecified fall, initial encounter; F03.90 Unspecified dementia, unspecified severity, without behavioral disturbance, psychotic disturbance, mood disturbance, and anxiety; E11.40 Type 2 diabetes mellitus with diabetic neuropathy, unspecified; I10 Essential (primary) hypertension; F32.A Depression, unspecified; Z79.899 Other long term (current) drug therapy; Z79.82 Long term (current) use of aspirin
CPT/HCPCS: 70450; 72125; 80053; 81001; 85025; 87086; 93005; 93010; 99284-25; P9612

== ENCOUNTER 2025-06-04 13:56 | Inpatient (IN) | payer OTHER ==
[~2025-06-04] VITALS: Ht 157.5 cm; Wt 63.5 kg
[2025-06-04 15:07] LABS: BASOPHILS ABSOLUTE AUTO 0.05 K/mm3 (0.00-0.23); BASOPHILS PERCENT AUTO 0 % (0-2); EOSINOPHILS ABSOLUTE AUTO 0.16 K/mm3 (0.00-0.68); EOSINOPHILS PERCENT AUTO 1 % (0-6); Hematocrit 33.5 % (33.0-51.0); Hemoglobin 10.7 g/dL (11.5-16.0); IMMATURE GRAN ABSOLUTE AUTO 0.03 K/mm3 (0.00-0.10); IMMATURE GRAN PERCENT AUTO 0 % (0-1); LYMPHOCYTES ABSOLUTE AUTO 1.12 K/mm3 (0.84-5.20); LYMPHOCYTES PERCENT AUTO 10 % (21-46); MONOCYTES ABSOLUTE AUTO 1.13 K/mm3 (0.16-1.47); MONOCYTES PERCENT AUTO 10 % (4-13); Mean Corpuscular HGB Conc 31.9 g/dL (31.5-36.5); Mean Corpuscular Volume 97 fL (80-100); NEUTROPHILS ABSOLUTE AUTO 8.66 K/mm3 (1.96-9.15); NEUTROPHILS PERCENT AUTO 78 % (41-73); NRBC ABSOLUTE 0.00 K/mm3 (0.00-0.02); NRBC Auto 0.0 /100 WBC (0.0-0.2); Platelet Count 179 K/mm3 (150-400); RDW Coefficient Variation 11.9 % (11.7-14.2); RDW Standard Deviation 42.8 fL (35.1-46.3)
[2025-06-04 15:31] LABS: Alanine Aminotransfer (ALT/SGP 16.0 U/L (12-78); Albumin, Blood 2.9 g/dL (3.4-5.0); Albumin/Globulin Ratio 0.8 (0.8-1.8); Anion Gap 10.0 mmol/L (3-11); Aspartate Aminotrans (AST/SGOT 22.0 U/L (12-37); Bilirubin, Total 0.4 mg/dL (0.1-1.0); Blood Urea Nitrogen 37.0 mg/dL (8-24); CO2, Blood 25.0 mmol/L (21-32); Calcium, Blood 9.3 mg/dL (8.5-10.1); Chloride, Blood 99.0 mmol/L (98-108); Creatinine, Blood 1.79 mg/dL (0.40-1.00); Globulin, Blood 3.7 g/dL (2.2-4.0); Glucose, Blood 95.0 mg/dL (70-99); Potassium, Blood 4.2 mmol/L (3.5-5.5); Sodium, Blood 130.0 mmol/L (136-145); Total Protein, Blood 6.6 g/dL (6.4-8.2)
[2025-06-04] MEDS ORDERED: NS 1,000 ML IV SCH ×3 (15:45→20:05)
[2025-06-04 15:51] LABS: Source, Urine Straight Cath
[2025-06-04 15:55] LABS: Bilirubin, Urine Neg (Neg); Color, Urine Yellow (P-Yellow); Glucose Qualitative, Urine Neg (Neg); Ketones, Urine Neg (Neg); Leukocyte Esterase, Urine 3+ (Neg); Protein, Urine 2+ (Neg); Specific Gravity, Urine 1.020 (1.003-1.022); Urobilinogen, Urine NORM (Normal)
[2025-06-04 16:18] LABS: White Blood Cells, Urine TNTC /hpf (0-5)
[2025-06-04 16:28] LABS: U Amphetamine Screen Not Detected; U Barbiturate Screen Not Detected; U Benzodiazapine Screen Not Detected; U Buprenorphine Screen Not Detected; U Cannabinoids Screen Not Detected; U Cocaine Screen Not Detected; U Methadone Screen Not Detected; U Methamphetamine Screen Not Detected; U Opiates Screen Not Detected; U Oxycodone Screen DETECTED; U Phencyclidine Screen Not Detected
[2025-06-04] MEDS ORDERED: CefTRIAXone Sodium 1,000 MG in NS 50 ML IV ONE (17:00)
[2025-06-04] MEDS ORDERED: LORazepam 2 MG/ML 1ML Injection IV PRN (20:05)
[2025-06-04] MEDS ORDERED: OxyCODONE 10/Acetamin 325 TABLET PO PRN (20:05)
[2025-06-04] MEDS ORDERED: Heparin Sodium 5000 Units/ML 1ML MDV SC SCH (21:00)
[2025-06-04 22:56] VITALS: BP 140/86
[2025-06-04 23:00] VITALS: BP 128/109
[2025-06-04 23:55] VITALS: BP 154/103
[2025-06-05] VITALS (10 sets, daily range): BP systolic 83–135; BP diastolic 44–89
[2025-06-05 04:36] LABS: BASOPHILS ABSOLUTE AUTO 0.03 K/mm3 (0.00-0.23); BASOPHILS PERCENT AUTO 0 % (0-2); EOSINOPHILS ABSOLUTE AUTO 0.03 K/mm3 (0.00-0.68); EOSINOPHILS PERCENT AUTO 0 % (0-6); Hematocrit 30.5 % (33.0-51.0); Hemoglobin 9.8 g/dL (11.5-16.0); IMMATURE GRAN ABSOLUTE AUTO 0.04 K/mm3 (0.00-0.10); IMMATURE GRAN PERCENT AUTO 0 % (0-1); LYMPHOCYTES ABSOLUTE AUTO 0.80 K/mm3 (0.84-5.20); LYMPHOCYTES PERCENT AUTO 8 % (21-46); MONOCYTES ABSOLUTE AUTO 0.85 K/mm3 (0.16-1.47); MONOCYTES PERCENT AUTO 9 % (4-13); Mean Corpuscular HGB Conc 32.1 g/dL (31.5-36.5); Mean Corpuscular Volume 97 fL (80-100); NEUTROPHILS ABSOLUTE AUTO 7.87 K/mm3 (1.96-9.15); NEUTROPHILS PERCENT AUTO 82 % (41-73); NRBC ABSOLUTE 0.00 K/mm3 (0.00-0.02); NRBC Auto 0.0 /100 WBC (0.0-0.2); Platelet Count 162 K/mm3 (150-400); RDW Coefficient Variation 11.9 % (11.7-14.2); RDW Standard Deviation 42.1 fL (35.1-46.3)
[2025-06-05 05:13] LABS: Alanine Aminotransfer (ALT/SGP 11.0 U/L (12-78); Albumin, Blood 2.4 g/dL (3.4-5.0); Albumin/Globulin Ratio 0.8 (0.8-1.8); Anion Gap 12.0 mmol/L (3-11); Aspartate Aminotrans (AST/SGOT 18.0 U/L (12-37); Bilirubin, Total 0.5 mg/dL (0.1-1.0); Blood Urea Nitrogen 30.0 mg/dL (8-24); CO2, Blood 19.0 mmol/L (21-32); Calcium, Blood 8.1 mg/dL (8.5-10.1); Chloride, Blood 107.0 mmol/L (98-108); Creatinine, Blood 1.62 mg/dL (0.40-1.00); Globulin, Blood 3.1 g/dL (2.2-4.0); Glucose, Blood 79.0 mg/dL (70-99); Magnesium, Blood 1.6 mg/dL (1.6-2.4); Potassium, Blood 3.8 mmol/L (3.5-5.5); Sodium, Blood 134.0 mmol/L (136-145); Total Protein, Blood 5.5 g/dL (6.4-8.2)
--- NOTE | 2025-06-05 06:20 | NUR ---
SHIFT SUMMARY RECEIVED PT FROM ED LAST NIGHT AT 2243, TRANSFERRED TO PCU BED, TELE PLACED. AWAKE, ORIENTED TO SELF ONLY, BASELINE DEMENTIA PER DAUGHTER WHO WAS AT BS FOR ADMIT. UNABLE TO OBTAIN INFO FROM PT, DAUGHTER ASSISTED WITH ADMIT. PT BECAME QUITE AGITATED/RESTLESS/SHIVERING AT TIMES, SHORTLY AFTER ARRIVAL, WARM BLANKETS GIVEN AND ATIVAN, RESTORIL AND OXY GIVEN FOR PAIN AND AGITATION. DAUGHTER STATES SHE TAKES OXY Q6HR AT HOME AND USES SLEEP AID. PT MUCH MORE CALM AFTER ATIVAN. RESTED T/O NIGHT WITHOUT FURTHER ISSUES. VSS WITH NC AT 4L TO KEEP O2SAT>94%. DAUGHTER STATES PT HAS O2 AVAIL AT HOME BUT REFUSES TO WEAR IT. REJI NC T/O WITHOUT ISSUE. WILL UPDATE DAY RN WITH ANY OUTSTANDING ISSUES AND PROBLEMS TO DATE.
[2025-06-05] MEDS ORDERED: DULoxetine HCL 30 MG Cap DR PO SCH (09:00)
[2025-06-05] MEDS ORDERED: Polyethylene Glycol 3350 17 gm PO SCH (09:00)
--- NOTE | 2025-06-05 10:39 | NUR ---
am note this rn assumed care at 0700. vital signs stable. spo2 >90% on 4l nc. patient responds to pain, and able to state name when awake, but can not hold a conversation and will fall back asleep. patient is not exhibiting symptoms of pain. patient has reddness to bottom that is blanchable, mepliex in place, and pictures in the chart. on patient right butt cheek red blister appearence, mepilex in place, and pictures in chart. see shift assessment for further detials. md gann in to see the patient around 0840 and patient responds to pain, but unable to have conversation with and I in the room. this rn discussed with md gann in holding patient oral meds and plan to hold am oral meds. this rn bladder scanned and bladder scan showed >1777. Camacho catheter was placed and 2400ml out. Patient urine was mac and then as bladder emptied color turned to milky color. This rn called md gann and updated on bladder scan, camacho placement, color of urine, and no mentation changes since was here.
[2025-06-05] MEDS ORDERED: CefTRIAXone Sodium 1,000 MG in NS 100 ML IV SCH (12:00)
[2025-06-05] MEDS ORDERED: Heparin Sodium 1000 Units/ML 10ML MDV ONE (13:49)
[2025-06-05] MEDS ORDERED: NS 500 ML IV ONE (13:49)
--- NOTE | 2025-06-05 17:19 | NUR ---
shift summary this rn called md gann this afternoon to update on soft blood pressure and patient is non symptomatic with soft bp. this rn also updated patient having pain and md gann switched pain medication. patient pain rated at 5 and upon reassessment no pain. patient map >65. this afternoon patient mentation improved. patient is alert and oriented x3-4. patient sitting at bedside with patient this afternoon. no acute changes. plan remains up to date
[2025-06-06 03:40] VITALS: BP 133/72
[2025-06-06] MEDS ORDERED: MEMA10 PO (04:21)
[2025-06-06] MEDS ORDERED: AMIT75 PO (04:29)
[2025-06-06] MEDS ORDERED: VALSARTAN40 MG PO (04:31)
--- NOTE | 2025-06-06 06:44 | NUR ---
SHIFT SUMMARY PATIENT ALERT AND ORIENTED X3. MEDICATED PER EMAR FOR PAIN. DENIES HAVING SHORTNESS OF BREATH. ON ROOM AIR WITH SPO2 >90%. VITAL SIGNS STABLE. NO ACUTE ISSUES NOTED OVERNIGHT. WILL CONTINUE TO MONITOR. CALL LIGHT WITHIN REACH.
[2025-06-06 08:10] VITALS: BP 140/75
--- NOTE | 2025-06-06 10:02 | NUR ---
am note this rn assumed care at 0700. vital signs stable. tele sinus rhythm spo2 >90% on room air. patient is alert and oriented x3-4. patient got the month and year right, but the day was incorrect. patient is able to make needs known and uses call light appropriately. patient denies pain, chest pain/pressure or shortness of breath. patient lung sounds clear. patient has reddness to bottom and mepilex in place, and blister on right butt cheek. there are pictures in the chart for both places described. patient has camacho catheter in draining yellow urine. see shift assessment for further detials. Hack in to see patient and discussed plan to go home possibly today pending urine cultures and discussion with family. Patient agrees to this plan.
[2025-06-06] MEDS ORDERED: VITAMIN D325 MC3 PO (10:29)
[2025-06-06] MEDS ORDERED: ATOR20 PO (10:33)
[2025-06-06] MEDS ORDERED: DOCU100 PO (10:34)
[2025-06-06] MEDS ORDERED: MIRALAX1714 PO (10:34)
[2025-06-06 16:15] VITALS: BP 149/105
--- NOTE | 2025-06-06 16:44 | NUR ---
shift summary patient vital signs remain stable. neuro remains unchanged. , hesham, and daughter, darius, in the room around 1615 and this rn discussed the plan that had been discussed with care management and darius. the plan is for the patient to be assessed by [facility] on monday and to hopefully be placed there on monday or monday. family is aware of this and made this decision. md gann is aware of this. 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 no acute changes. see previous note.
[2025-06-06 20:29] VITALS: BP 148/86
--- NOTE | 2025-06-07 03:42 | NUR ---
TRANSFER NOTE: RECIEVED REPORT FROM TIE BUYER. ASSUMED CARE OF PT. GAVE REPORT TO PRIMARY NURSE. REKHA. PT IS COMFORTABLE IN BED. BED LOW AND LOCKED. IV FLUIDS RUNNING. CALL LIGHT IS WITHIN REACH.
[2025-06-07 03:45] VITALS: BP 130/75
[2025-06-07 05:39] LABS: Hematocrit 31.0 % (33.0-51.0); Hemoglobin 10.0 g/dL (11.5-16.0); Mean Corpuscular HGB Conc 32.3 g/dL (31.5-36.5); Mean Corpuscular Volume 98 fL (80-100); NRBC ABSOLUTE 0.00 K/mm3 (0.00-0.02); NRBC Auto 0.0 /100 WBC (0.0-0.2); Platelet Count 175 K/mm3 (150-400); RDW Coefficient Variation 12.0 % (11.7-14.2); RDW Standard Deviation 43.6 fL (35.1-46.3)
[2025-06-07 06:09] LABS: Albumin, Blood 2.1 g/dL (3.4-5.0); Anion Gap 8 mmol/L (3-11); Blood Urea Nitrogen 15 mg/dL (8-24); CO2, Blood 21 mmol/L (21-32); Calcium, Blood 7.9 mg/dL (8.5-10.1); Chloride, Blood 115 mmol/L (98-108); Creatinine, Blood 1.21 mg/dL (0.40-1.00); Glucose, Blood 69 mg/dL (70-99); Magnesium, Blood 1.4 mg/dL (1.6-2.4); Phosphorus, Blood 2.3 mg/dL (2.5-4.9); Potassium, Blood 3.3 mmol/L (3.5-5.5); Sodium, Blood 141 mmol/L (136-145)
--- NOTE | 2025-06-07 07:18 | NUR ---
SHIFT SUMMARY A&O X3-4. HAS SOME APHASIA AND DIFFICULTY FINDING HER WORDS. OCCASIONAL CONFUSION. ABLE TO MAKE NEEDS KNOWN. URIBE CATHETER PATENT AND DRAINING CLOUDY YELLOW URINE TO GRAVITY. IV FLUIDS RUNNING PER ORDERS. PT HAD SOME PAIN DURING SHIFT AND MEDICATED PER ORDERS. PT CURRENTLY SLEEPING IN BED AT LOWEST POSITION WITH HOB ELEVATED AND CALL LIGHT WITHIN REACH.
[2025-06-07 07:37] VITALS: BP 153/90
[2025-06-07] MEDS ORDERED: Magnesium Sulf 2 GM/Water 50ML 50 ML IV ONE (08:40)
[2025-06-07 15:46] VITALS: BP 146/88
--- NOTE | 2025-06-07 17:35 | NUR ---
NOTE PT VISITING WITH FAMILY. VSS. UP TO CAHIR WITH SBA FWW. GAIT STEADY. DENIED DISCOMFORT. POOR APPETITE. ENCOURAGED TO EAT/DRINK. BED LOW LOCKED. CALL LIGHT WITH IN REACH. CARE ONGOING.
[2025-06-07 19:40] VITALS: BP 143/113
[2025-06-07 19:54] VITALS: BP 132/88
--- NOTE | 2025-06-08 04:38 | NUR ---
SHIFT SUMMARY A&OX2-3. INTERMITTENT CONFUSION AND NON-SENSICAL TALK AT TIMES. FORGETFUL AT TIMES. ABLE TO MAKE NEEDS KNOWN. HAS HAD NS RUNNING AT 100 ML/HR AND TOLERATING WELL. URIBE CATHETER IS PATENT AND DRAINING TO GRAVITY. PT HAD SOME PAIN IN HER FEET AND WAS MEDICATED PER EMAR. PT IS CURRENTLY SLEEPING IN HER BED AT LOWEST POSITION WITH CALL LIGHT WITHIN REACH.
[2025-06-08 06:08] VITALS: BP 147/94
[2025-06-08 06:51] LABS: Anion Gap 9.0 mmol/L (3-11); Blood Urea Nitrogen 10.0 mg/dL (8-24); CO2, Blood 21.0 mmol/L (21-32); Calcium, Blood 8.1 mg/dL (8.5-10.1); Chloride, Blood 117.0 mmol/L (98-108); Creatinine, Blood 1.1 mg/dL (0.40-1.00); Glucose, Blood 80.0 mg/dL (70-99); Magnesium, Blood 2.0 mg/dL (1.6-2.4); Phosphorus, Blood 2.6 mg/dL (2.5-4.9); Potassium, Blood 3.7 mmol/L (3.5-5.5); Sodium, Blood 143.0 mmol/L (136-145)
[2025-06-08 07:21] VITALS: BP 146/91
[2025-06-08 15:27] VITALS: BP 147/91
--- NOTE | 2025-06-08 17:55 | NUR ---
NOTE PT AWAKE VISITING WITH FAMILY. COHN IS SUPPOSED TO EVAL PT AT 1300 TOMORROW. PT IS AWARE OF THE REASON FOR THE MEETING. PT UP 1 ASSIST AND FWW. GAIT STEADY, SLOW. SHE TOOK A SHOWER D/T AN EXPLOSIVE LOOSE STOOL. BOWEL CARE HELD. FAMILY BROUGHT IN A HAMBURGER FOR HER. VSS. MEDICATED FOR FEET PAIN X1. UP TO CAHIR FOR MOST OF THE DAY. BED LOW AND LOCKED. [facility].
[2025-06-08 19:52] VITALS: BP 136/81
[2025-06-09 03:33] VITALS: BP 134/80
--- NOTE | 2025-06-09 04:48 | NUR ---
SHIFT SUMMARY: PT AOX3-4 CONFUSION AND TALKATIVE. FORGETFUL AT TIMES BUT VERY PLEASANT AND COOPERATIVE IN CARE. PAIN MEDICATED PER EMR. CALLS APPROPRAITELY AND ABLE TO MAKE NEEDS KNOWN. URIBE DRAINING WELL TO GRAVITY. NO ACUTE OVERNIGHT EVENTS. PT IN BED RESTING, BED IN LOWEST POSITION, CALL LIGHT IN REACH. CONTINUING CARE.
[2025-06-09 07:21] VITALS: BP 123/72
--- NOTE | 2025-06-09 11:29 | NUR ---
CALL TO DR GA REGARDING HIS NOTE ABOUT REMOVING THE URIBE CATHETER ON 06/08. ADVISED DOC THIS PATIENT STRAIGHT CATHS AT HOME 4X/DAY AND DOC SAID TO GO AHEAD AND LEAVE THE URIBE IN FOR NOW.
[2025-06-09 15:18] VITALS: BP 146/100
[2025-06-09 15:19] VITALS: BP 158/88
--- NOTE | 2025-06-09 18:00 | NUR ---
SHIFT SUMMARY PATIENT IS A&OX3-4, FORGETFUL. TEARFUL ABOUT GOING TO [facility]. PATIENT WAS EVALUATED BY [facility] TODAY AND ACCEPTED, PLAN FOR DISCHARGE TOMORROW. SHE IS ON ROOM AIR. SHE AMBULATES WITH SBA FWW AND GB. BED IS CURRENTLY LOW, BED ALARM SET, CALL LIGHT IN REACH.
[2025-06-09 20:00] VITALS: BP 141/87
--- NOTE | 2025-06-10 04:40 | NUR ---
SHIFT SUMMARY: PT AOX4 WITH CONFUSION AND FORGETFULLNESS. PT PLEASANT AND FOLLOWS COMMANDS WELL. TOLERATING MEDICATIONS WELL. NO ACUTE OVERNIGHT EVENTS. PT IN BED SLEEPING, BED IN LOWEST POSITION, CALL LIGHT IN REACH. CONTINUING CARE.
[2025-06-10 05:28] VITALS: BP 138/99
[2025-06-10 07:56] VITALS: BP 148/91
--- NOTE | 2025-06-10 11:47 | NUR ---
DR. GA IN ROOM TO DISCUSS DISCHARGE PLANNING WITH PATIENT. DR. GA ADVISED TO REMOVE IV IV ANTIBIOTICS ARE NO LONGER NEEDED.
[2025-06-10 15:44] VITALS: BP 146/94
--- NOTE | 2025-06-10 16:56 | NUR ---
SHIFT SUMMARY PATIENT IS A&OX3, FORGETFUL. SHE IS COOPERATIVE WITH CARE AND IS ABLE TO MAKE HER NEEDS KNOWN. SHE AMBULATES WITH FWW AND SBA. SHE IS CONTINENT OF BOWELS, URIBE IN PLACE FOR URINE RETENTION. DOCTOR, FAMILY, AND CARE COORDINATION MEETING TODAY DETERMINED THE BEST COURSE OF ACTION FOR DISCHARGE IS FOR THE PATIENT TO GO HOME ON HOME HEALTH. SHE IS CURRENTLY SITTING UP IN THE CHAIR, AWAITING DINNER. CHAIR ALARM IS ON, CALL LIGHT IN REACH.
[2025-06-10 19:39] VITALS: BP 149/112
[2025-06-11 04:31] VITALS: BP 150/80
--- NOTE | 2025-06-11 07:17 | NUR ---
SHIFT SUMMARY A/Ox4, FORGETFUL. VSS ON RA. CATH CARE DEMONSTRATION AND EDUCATION PROVIDED; PT REPORTS NOT WANTING A CHRONIC CATH PLACEMENT. DISCUSSED INDICATIONS FOR CATH PLACEMENT PLUS POTENTIAL TO REMAIN MORE INDEPENDENT; PT SEEMED RECEPTIVE AT THIS TIME. PRN TYLENOL AND OXY GIVEN FOR CHRONIC LOW BACK/FEET/R HAND PAIN. SAFETY PRECAUTIONS IN PLACE, CALL LIGHT IN REACH.
[2025-06-11 07:25] VITALS: BP 143/91
--- NOTE | 2025-06-11 10:04 | NUR ---
CALL TO DOC REGARDING IV ROCEPHIN ORDER DUE TO IV BEING D/C'D PER DOC ORDER YESTERDAY. DR GA ADVISED TO D/C THE ANTIBIOTIC ORDER.
[2025-06-11] MEDS ORDERED: AMITRIPTYLINE100 M2 PO (13:40)
[2025-06-11] MEDS ORDERED: CYMBALTA30 M1 PO (13:41)
--- NOTE | 2025-06-11 14:38 | NUR ---
CALLED SURY TO LET HIM KNOW THAT PATIENT RIGHT ULNAR WRIST IS SWOLLEN, RED, AND PAINFUL TO TOUCH, THIS IS A NEW DEVELOPMENT. WOUND MARKED AND PUT ON ICE, ORAL PAIN MED GIVEN PER EMAR.
[2025-06-11] MEDS ORDERED: ACET325 PO (14:49)
--- NOTE | 2025-06-11 14:54 | NUR ---
1040 IN THE ROOM TO DISCUSS D/C WITH PATIENT AND DAUGHTER SHAWNA. DAUGHTER SHAWNA EXPRESSED CONCERNS ABOUT DISCHARGING PATIENT TO HOME WITH HOME HEALTH. DAUGHTER REQUESTED ETHICS TO THE ROOM. 1050 THIS RN REQUESTED ETHICS TO THE ROOM. 1105 ETHICS IN THE ROOM
[2025-06-11 15:40] VITALS: BP 145/94
--- NOTE | 2025-06-11 16:30 | NUR ---
DISCHARGED HOME WITH HOME HEALTH ORDERS, LEFT IN WHEELCHAIR BY MEDICAL STAFF WITH DAUGHTER AT 1600. BELONGINGS WITH THE DAUGHTER. THE PATIENT LEFT IN A STABLE CONDITION.
== END 2025-06-11 16:16 | disposition home or self-care (01) | DRG 698 ==
LOC: ER 13:56 → PCU 13:57 → ERHOLD 13:57 → PCU 22:38 → MEDS 06-05 14:44 → PCU 06-06 09:48 → MEDS 06-07 03:30
PROVIDERS: Emergency Medicine; Internal Medicine; Nurse Practitioner Acute Care; Physician Assistant; ADMIT Internal Medicine
PROC: 0T9B70Z Drainage of Bladder with Drainage Device, Via Natural or Artificial Opening (ICD-10-PCS; principal; 2025-06-05)
PROC: 3E03329 Introduction of Other Anti-infective into Peripheral Vein, Percutaneous Approach (ICD-10-PCS; 2025-06-05)
DX: T83.511A Infection and inflammatory reaction due to indwelling urethral catheter, initial encounter (principal); A41.51 Sepsis due to Escherichia coli [E. coli]; G92.8 Other toxic encephalopathy; R65.21 Severe sepsis with septic shock; E87.1 Hypo-osmolality and hyponatremia; N17.9 Acute kidney failure, unspecified; I13.0 Hypertensive heart and chronic kidney disease with heart failure and stage 1 through stage 4 chronic kidney disease, or unspecified chronic kidney disease; I50.30 Unspecified diastolic (congestive) heart failure; F11.20 Opioid dependence, uncomplicated; F02.B11 Dementia in other diseases classified elsewhere, moderate, with agitation; N39.0 Urinary tract infection, site not specified; Z66 Do not resuscitate; E11.22 Type 2 diabetes mellitus with diabetic chronic kidney disease; N18.30 Chronic kidney disease, stage 3 unspecified; N31.9 Neuromuscular dysfunction of bladder, unspecified; G30.9 Alzheimer's disease, unspecified; E78.5 Hyperlipidemia, unspecified; K22.70 Barrett's esophagus without dysplasia; R33.8 Other retention of urine; G89.29 Other chronic pain; T40.605A Adverse effect of unspecified narcotics, initial encounter; E87.6 Hypokalemia; E83.42 Hypomagnesemia; E83.39 Other disorders of phosphorus metabolism; Z79.899 Other long term (current) drug therapy; Z79.82 Long term (current) use of aspirin; Z98.890 Other specified postprocedural states; Y84.6 Urinary catheterization as the cause of abnormal reaction of the patient, or of later complication, without mention of misadventure at the time of the procedure
CPT/HCPCS: 36415; 70450; 80048; 80053; 80069; 81001; 83605; 83690; 83735; 84100; 84443; 84484; 85025; 85027; 87040; 87077; 87086; 87186; 97110; 97116; 97161; 97530; 99285-25; A9270; J0696; J1644; J2060; J3475; J7030; J7040

== ENCOUNTER 2025-07-10 08:09 | Emergency (ER) | payer OTHER ==
[~2025-07-10] VITALS: Ht 162.6 cm; Wt 61.2 kg
[~2025-07-10 08:09] MED LIST changes: +AMIT75 PO; +AMITRIPTYLINE100 M2 PO; +MEMA10 PO; +MIRALAX1714 PO; +VITAMIN D325 MC3 PO
[2025-07-10] MEDS ORDERED: Voltaren100 GM (09:26)
[2025-07-10] MEDS ORDERED: DONE5 PO (09:26)
[2025-07-10] MEDS ORDERED: Isosorbide Mono30 MG PO (09:36)
[2025-07-10] MEDS ORDERED: FERSU300 PO (09:36)
[2025-07-10] MEDS ORDERED: Vitamin D1000 UNI1 PO (09:39)
[2025-07-10 10:15] VITALS: BP 144/101
== END 2025-07-10 11:10 | disposition home or self-care (01) ==
LOC: ER 08:09
DX: S16.1XXA Strain of muscle, fascia and tendon at neck level, initial encounter (principal); S00.33XA Contusion of nose, initial encounter; S00.83XA Contusion of other part of head, initial encounter; W07.XXXA Fall from chair, initial encounter
CPT/HCPCS: 70450; 72125; 93005; 93010; 99285-25; A9270